=== PATIENT | male | born 1995 | race Caucasian/White ===

== ENCOUNTER 2016-09-01 23:54 | Emergency (ER) | payer OTHER ==
[2016-09-02 00:10] VITALS: BP 149/76; PULSE 64; RESP 16; TEMP 98.6
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
== END 2016-09-02 01:35 | disposition home or self-care (01) ==
LOC: EC 23:54
DX: Z77.098 Contact with and (suspected) exposure to other hazardous, chiefly nonmedicinal, chemicals (principal); F17.200 Nicotine dependence, unspecified, uncomplicated
CPT/HCPCS: 99282

== ENCOUNTER 2018-05-08 16:46 | Inpatient (IN) | payer BC, OTHER ==
[2018-05-08] MEDS ORDERED: HYDROmorphone 1 MG/ML 1 ML SYRINGE IVP STA ×2 (17:09→19:49)
[2018-05-08] MEDS ORDERED: DIPH,PERTUS(ACELL)TETVAC-LF 0.5 ML VIAL IM ONE (17:09)
[2018-05-08] MEDS ORDERED: PIPERACILLIN-TAZOBACTAM 3.375 GM in SODIUM CHLORIDE 0.9% 100 ML IVPB STA (17:11)
[2018-05-08] MEDS ORDERED: ONDANSETRON 4 MG/2 ML VIAL IVP STA (17:12)
--- NOTE | 2018-05-08 17:25 | ED ---
Lower Extremity Injury HPI - General Chief Complaint: Skin/Abscess/Foreign Body Stated Complaint: Right Foot Injury Time Seen by Provider: 05/08/18 16:57 Source: patient Mode of arrival: EMS Limitations: no limitations - History of Present Illness Initial Comments: 22-year-old male patient presents to the emergency department today for evaluation of injury to the right foot. Patient states approximately 30 minutes prior to arrival he was riding down a tree when the tree fell down and a sharp pointy portion of the treee impaled through his shoe into his foot. He states that his family member pulled the tree out shortly after the injury. They called ambulance and had him transported here. Patient states he is having significant pain to the right foot. States he is feeling some numbness to the fifth digit. Last tetanus vaccine was in 2012. He denies any other injuries. Patient denies any headache, neck pain, back pain, chest pain, shortness of breath, dizziness, weakness, abdominal pain, nausea, vomiting, or difficulties with bowel movements or urination. - Related Data Home Medications Medication Instructions Recorded Confirmed Melatonin 10 mg PO HS 05/08/18 05/08/18 Sertraline [Zoloft] 100 mg PO HS 05/08/18 05/08/18 Allergies Allergy/AdvReac Type Severity Reaction Status Date / Time No Known Allergies Allergy Verified 05/08/18 20:15 Review of Systems ROS Statement: Those systems with pertinent positive or pertinent negative responses have been documented in the HPI. ROS Other: All systems not noted in ROS Statement are negative. Past Medical History Past Medical History: Syncope Additional Past Medical History / Comment(s): not dx, high BP, recurrent low BP, History of Any Multi-Drug Resistant Organisms: None Reported Past Surgical History: No Surgical Hx Reported Past Psychological History: No Psychological Hx Reported Smoking Status: Current every day smoker Past Alcohol Use History: Occasional Past Drug Use History: None Reported General Exam Limitations: no limitations General appearance: alert, in no apparent distress, other (This is a well- developed, well-nourished adult male patient in mild distress related to pain. Vital signs upon presentation are temperature 98.7 degrees a NyQuil pulse 89, respirations 18, blood pressure 133/74, pulse ox 98% on room air.) Eye exam: Present: normal appearance, PERRL, EOMI. Absent: scleral icterus, conjunctival injection, periorbital swelling ENT exam: Present: normal exam, normal oropharynx, mucous membranes moist Respiratory exam: Present: normal lung sounds bilaterally. Absent: respiratory distress, wheezes, rales, rhonchi, stridor Cardiovascular Exam: Present: regular rate, normal rhythm, normal heart sounds. Absent: systolic murmur, diastolic murmur, rubs, gallop, clicks Extremities exam: Present: full ROM, normal capillary refill, other (Patient has a large irregular laceration noted to the right lateral foot extending from the dorsal surface to the plantar surface. Total length is approximately 23 cm. Toes are cool to touch. Cap refill less than 3 seconds. Pedal and posttibial pulses 2+ and equal bilaterally. Bleeding is under control.). Absent: normal inspection, tenderness, pedal edema, joint swelling, calf tenderness Neurological exam: Present: alert, oriented X3, CN II-XII intact Psychiatric exam: Present: normal affect, normal mood Skin exam: Present: warm, dry, intact, normal color. Absent: rash Course Vital Signs 05/08/18 17:01 Temperature 98.7 F Pulse Rate 89 Respiratory 18 Rate Blood Pressure 133/74 O2 Sat by Pulse 98 Oximetry Medical Decision Making - Medical Decision Making 22-year-old male patient presented to the emergency department today for evaluation of right foot injury after a tree fell onto his foot with a sharp pointy portion and paling the right lateral foot. X-ray was obtained and showed no acute osseous abnormalities did show soft tissue deformity consistent with multiple lacerations. There was a total of approximately 23 cm laceration to the right dorsal foot and to the plantar surface of the foot. This was cleansed using a mixture of sterile water and iodine. Nonadherent and a wet-to- dry dressing was applied. My attending did discuss the case with the on-call orthopedic surgeon who will admit patient and taken to operating room tomorrow for washout and closure. We did start Zosyn. Patient will have pain management provided. I did discuss findings, results, and plan with patient and family, they are agreeable. - Radiology Data Radiology results: report reviewed, image reviewed 3 views of the right foot were obtained, report was reviewed in its entirety. Impression by Dr. Kline shows no acute fracture dislocation the right foot. Multifocal subcutaneous emphysema of the plantar lateral aspect of the midfoot and hindfoot with multifocal soft tissue lacerations. Disposition Clinical Impression: Laceration of foot, right, complicated Disposition: ADMITTED IP TO THIS [facility] Condition: Serious Decision to Admit Reason: Admit from EC Decision Date: 05/08/18 Decision Time: 19:30
--- NOTE | 2018-05-08 17:41 | XR ---
EXAMINATION TYPE: XR foot complete RT DATE OF EXAM: 05/08/2018 CLINICAL HISTORY: Right foot pain after injury. TECHNIQUE: Frontal, lateral, and oblique images of the right foot are obtained. COMPARISON: None FINDINGS: There is no acute fracture/dislocation evident in the right foot. There is lateral midfoot and hindfoot subcutaneous emphysema and soft tissue swelling with multifocal lacerations. This is se en over the plantar surface of the hindfoot and forefoot. IMPRESSION: There is no acute fracture or dislocation in the right foot. Multifocal subcutaneous emp hysema of the plantar lateral aspect of the midfoot and hindfoot with multifocal soft tissue lacerati ons.
[2018-05-08] MEDS ORDERED: HYDROmorphone 0.5 MG/0.5 ML SYRINGE IVP STA ×2 (17:53→19:06)
[2018-05-08] MEDS ORDERED: KETOROLAC 30 MG/ML 1 ML VIAL IVP STA (18:48)
[2018-05-08] MEDS ORDERED: NALOXONE 0.4 MG/ML 1 ML VIAL IV PRN (19:30)
[2018-05-08] MEDS ORDERED: ONDANSETRON 4 MG/2 ML VIAL IVP PRN (19:30)
[2018-05-08] MEDS ORDERED: LORazepam 2 MG/ML INJ IV STA (19:49)
[2018-05-08] MEDS: MELATONIN 5 MG TABLET PO SCH (23:04)
[2018-05-08] MEDS: SERTRALINE 100 MG TAB PO SCH (23:04)
[2018-05-08] MEDS: SODIUM CHLORIDE 0.9% 1,000 ML IV SCH (23:04)
[2018-05-08] MEDS: HYDROmorphone 0.5 MG/0.5 ML SYRINGE IVP PRN (23:26)
[2018-05-09] MEDS ORDERED: PIPERACILLIN-TAZOBACTAM 3.375 GM in SODIUM CHLORIDE 0.9% 100 ML IVPB ONE (02:00)
[2018-05-09] MEDS: HYDROmorphone 0.5 MG/0.5 ML SYRINGE IVP PRN ×4 (02:32→13:21)
--- NOTE | 2018-05-09 08:29 | P.HPOR ---
History of Present Illness H&P Date: 05/09/18 Chief Complaint: Right foot laceration This is a 22-year-old male who presented to the emergency department yesterday with injury to his right foot. He was in the [place] by his house taking down a tall, broken tree when a sharp, jagged part of the tree impaled his work boot on the lateral aspect of his foot. He sustained a large laceration with wound contamination. The wound was irrigated in the emergency department yesterday. He is admitted for IV antibiotics and surgical debridement. Past Medical History Past Medical History: Syncope Additional Past Medical History / Comment(s): not dx, high BP, recurrent low BP, History of Any Multi-Drug Resistant Organisms: None Reported Past Surgical History: No Surgical Hx Reported Additional Past Surgical History / Comment(s): Loop recorder placed about a year ago Past Psychological History: No Psychological Hx Reported Smoking Status: Current every day smoker Past Alcohol Use History: Occasional Past Drug Use History: None Reported Medications and Allergies Home Medications Medication Instructions Recorded Confirmed Type Melatonin 10 mg PO HS 05/08/18 05/08/18 History Sertraline [Zoloft] 100 mg PO HS 05/08/18 05/08/18 History Allergies Allergy/AdvReac Type Severity Reaction Status Date / Time No Known Allergies Allergy Verified 05/08/18 20:15 Physical Examination This is a pleasant 22-year-old male in no acute distress. He is alert and oriented 3. Exam of the right lower extremity reveals a large L-shaped laceration about the lateral aspect of the foot, about the region of the base of the fifth metatarsal, extending into the midfoot dorsally. Tendon and muscle are visible. He has fairly good toe motion. He has dulled sensation to the lateral 2 toes. He has fairly good ankle motion without difficulty. Capillary refill is less than 3 seconds. Neurovascular status to the lower extremity is otherwise intact. Results X-rays of the right foot show no obvious bony abnormality. Soft tissue disruption noted on x-ray. Assessment and Plan (1) Laceration of foot, right, complicated Current Visit: Yes Status: Acute Code(s): S91.311A - LACERATION WITHOUT FOREIGN BODY, RIGHT FOOT, INIT ENCNTR SNOMED Code(s): 770235296 Plan: The clinical and x-ray findings are discussed the patient and his family. It is recommended he go to the operating room for surgical debridement and exploration of the wound with repair of the laceration. The procedure has been discussed in detail including the possible risks and outcomes of surgery. After discussion and consideration the patient elects to proceed with the surgery.
[2018-05-09] MEDS ORDERED: KETOROLAC 30 MG/ML 1 ML VIAL ONE (10:27)
[2018-05-09] MEDS ORDERED: LIDOCAINE 1% INJ 10MG/ML (20 ML MDV) ONE (10:27)
[2018-05-09] MEDS ORDERED: ONDANSETRON 4 MG/2 ML VIAL ONE (10:27)
[2018-05-09] MEDS ORDERED: fentaNYL (PF) 50 MCG/ML 2 ML AMP ONE (10:27)
[2018-05-09] MEDS ORDERED: SUCCINYLCHOLINE CHLORIDE VIAL 200 MG/10 ML VIAL IV ONE (10:27)
[2018-05-09] MEDS ORDERED: SODIUM CHLORIDE 0.9% 1,000 ML IV ONE (10:27)
[2018-05-09] MEDS ORDERED: PROPOFOL 10 MG/ML 20 ML VIAL IV ONE (10:27)
[2018-05-09] MEDS ORDERED: MIDAZOLAM 2 MG/2 ML VIAL ONE (10:27)
[2018-05-09] MEDS ORDERED: SODIUM CHLORIDE 0.9% 50 ML with ceFAZolin 3,000 MG IV ONE ×2 (10:45)
[2018-05-09] MEDS ORDERED: diphenhydrAMINE 25 MG CAP PO PRN (11:02)
[2018-05-09] MEDS ORDERED: HYDROmorphone 1 MG/ML 1 ML SYRINGE IVP PRN (11:02)
[2018-05-09] MEDS ORDERED: hydrOXYzine PAMOATE 25 MG CAP PO PRN (11:02)
[2018-05-09] MEDS ORDERED: SENNOSIDES-DOCUSATE SODIUM 1 EACH TAB PO PRN (11:02)
[2018-05-09] MEDS ORDERED: TEMAZEPAM 15 MG CAP PO PRN (11:02)
[2018-05-09] MEDS ORDERED: HYDROmorphone 0.5 MG/0.5 ML SYRINGE IVP PRN (11:02)
[2018-05-09] MEDS ORDERED: LACTATED RINGERS 1,000 ML IV ONE (11:08)
[2018-05-09] MEDS: LACTATED RINGERS 1,000 ML IV SCH ×2 (12:36→21:51)
[2018-05-09 14:44] LABS: Anion Gap 6 mmol/L; Blood Urea Nitrogen 24 mg/dL (9-20); Calcium 8.6 mg/dL (8.4-10.2); Carbon Dioxide 26 mmol/L (22-30); Chloride 110 mmol/L (98-107); Glucose 119 mg/dL (74-99); Potassium 4.5 mmol/L (3.5-5.1); Sodium 142 mmol/L (137-145)
[2018-05-09] MEDS ORDERED: GENTAMICIN PER PHARMACY MISCELLANE PRN (15:57)
[2018-05-09] MEDS: SODIUM CHLORIDE 0.9% 1,000 ML IV SCH (15:58)
[2018-05-09] MEDS ORDERED: GENTAMICIN 80 MG in SODIUM CHLORIDE 0.9% 100 ML IVPB SCH (16:00)
[2018-05-09] MEDS: ceFAZolin 3 GM in SODIUM CHLORIDE 0.9% 100 ML IVPB SCH ×2 (16:38→23:37)
[2018-05-09] MEDS ORDERED: GENTAMICIN 500 MG in SODIUM CHLORIDE 0.9% 100 ML IVPB SCH (17:00)
[2018-05-09] MEDS: HYDROcodone/APAP 5-325MG 1 EACH TAB PO PRN ×2 (19:16→21:50)
--- NOTE | 2018-05-09 20:42 | CONS ---
CONSULTATION DATE OF CONSULTATION: 05/09/2018 REASON FOR CONSULTATION: Medical management requested by Dr. Armas. CONSULTATION: HISTORY OF PRESENTING COMPLAINT: This is a 22-year-old patient whose family doctor is Dr. Alas. The patient near his house, there was a long branch which appeared to be over 20 feet hanging from the tree. One end was caught up on the tree and the part that actually had broken off was hanging on the lower end. Patient started to pull it down and so that it fell. It fell in such a way that the sharp end, which was hanging below, came straight down hitting the lateral part of his boot, went through his boot and his foot and jammed in the ground. The patient's father in law came out and had to pull off the tree from the ground. There was a laceration in the lateral part of the right foot. The patient's father in law has got pictures in his phone for the same, which he took in the ER and also while the patient was on the ground. The patient earlier was taken to the OR today. I do not have the official operative notes. All dressings in place when I saw the patient this afternoon. The patient did receive a tetanus shot in the ER and also received IV antibiotic. The patient was having episodes of passing out about a year ago and has got a loop recorder in place for close to a year. No on toward events have been reported otherwise. The patient does smoke a few cigarettes a day. Otherwise is in good health. Has some pain at the surgical site. REVIEW OF SYSTEMS: CONSTITUTIONAL: None. HEENT: None. RESPIRATORY: None. CARDIOVASCULAR: None. GASTROINTESTINAL: None. GENITOURINARY none. MUSCULOSKELETAL: As above. DERMATOLOGICAL as above. LYMPHATICS none. PSYCHIATRY none. NEUROLOGICAL none. PAST MEDICAL HISTORY: Episodes of passing out, loop recorder in place. PAST SURGICAL HISTORY: Loop recorder. SOCIAL HISTORY: Smokes about 6 cigarettes a day. Alcohol occasionally. Lives with his girlfriend's family and is employed. FAMILY HISTORY: Reviewed. Noncontributory to presentation. HOME MEDICATIONS: 1. Zoloft 100 mg q.h.s. 2. Melatonin 10 mg q.h.s. ALLERGIES: None. PHYSICAL EXAMINATION: VITAL SIGNS: Temperature 98, pulse 81, respiratory 14, blood pressure 137/65, pulse 95 percent on 3 L. GENERAL APPEARANCE: Well built, BMI 30.3, lying in bed. Tired-appearing. EYES: Pupils equal. Conjunctivae normal. HEENT: External appearance of nose and ears normal. Oral cavity normal. NECK: JVD not raised. Mass not palpable. RESPIRATORY: Effort normal. LUNGS: Fair air entry. CARDIOVASCULAR: 1st and 2nd sounds normal. No edema. ABDOMEN: Soft, nontender. Liver and spleen not palpable. LYMPHATICS: No lymph nodes palpable in the neck and axilla. PSYCHIATRY: Tired, but answering questions appropriately. MUSCULOSKELETAL: Dressing over the right foot. INVESTIGATIONS: White count 4.5, hemoglobin 24, creatinine 0.92. ASSESSMENT: 1. Right foot injury with laceration and penetrating wound with hat from a tree branch. The patient did get a tetanus injection in the ER and also did receive antibiotics in the form of IV Ancef and gentamicin. The patient was taken to the OR by Dr. Armas. Now with a dressing in place. 2. Chronic nicotine dependence, patient is a cigarette smoker. 3. Obesity BMI 30.3. 4. Patient has received a tetanus shot. Next, loop recorder in place for prior episodes of syncope. PLAN: Continue with antibiotics. The patient is on IV Ancef. Pain control is in place. We will add Lovenox for DVT prophylaxis. We will also given nicotine patch. Pain control per the surgical team. Care was discussed with the patient and family at the bedside. Thank you, Dr. Armas. MMDEWEY / SOLE: [id number] /
[2018-05-09] MEDS: NICOTINE 7MG/24HR PATCH TRANSDERM SCH (21:47)
[2018-05-09] MEDS: ENOXAPARIN 40 MG/0.4 ML SYRINGE SQ SCH (21:50)
[2018-05-09] MEDS: MELATONIN 5 MG TABLET PO SCH (21:50)
[2018-05-09] MEDS: SERTRALINE 100 MG TAB PO SCH (21:50)
[2018-05-10] MEDS: HYDROcodone/APAP 5-325MG 1 EACH TAB PO PRN ×4 (00:44→18:22)
[2018-05-10] MEDS: LACTATED RINGERS 1,000 ML IV SCH ×4 (04:53→21:22)
--- NOTE | 2018-05-10 05:42 | CONS ---
CONSULTATION DATE OF SERVICE: 05/09/2018. REASON FOR CONSULTATION: Right foot infected contaminated wound. HISTORY OF PRESENT ILLNESS: The patient is a 22 -year-old male who recently suffered injury to his right foot. About 30 minutes prior to arrival to the ER, the patient was tree when the tree fell down with sharp point portion of the tree through his shoe into his foot. The patient did have extensive laceration of his right foot with significant contamination. The patient did have a of his foot in the ER and subsequently patient was admitted hospital. The patient had been taken to the OR by Orthopedics and is status post operative repair with official operative report currently pending. The patient has been started on cefazolin and gentamicin. Infectious Disease was consulted for further recommendation of antibiotic therapy. The patient, at this time, is afebrile. He is breathing comfortably. Denies any chest pain, shortness of breath or cough. The patient pain to the right foot which was almost 10/10 when he presented to the hospital is currently controlled with pain medication he has been receiving. The patient denies having any chest pain, shortness of breath or cough. No abdominal pain or any diarrhea. REVIEW OF SYSTEMS: Positive points have been mentioned in HPI. Rest of the systems has been negative. PAST MEDICAL HISTORY: Syncope. PAST SURGICAL HISTORY: No major surgeries. SOCIAL HISTORY: Patient current everyday smoker. Occasionally drinks. No drug use. FAMILY HISTORY: No pertinent findings noticed. ALLERGIES: No known drug allergies. MEDICATION: Medications include the patient is currently on Sunbright, cefazolin 3 g q.8 hours, he is on Benadryl, Lovenox, gentamicin, Dilaudid and Restoril, melatonin, Narcan, Zofran, Senokot, Zoloft, Restoril. PHYSICAL EXAMINATION: Blood pressure is 131/64 with a pulse of 81, temperature 97.1. He is 97% on room air. General description is a young male lying in bed in no distress. No tachypnea or accessory muscles of respiration use. HEENT: No pallor or scleral icterus. Oral mucosal membranes are dry. No pharyngeal erythema or thrush. Trachea central. No thyromegaly. Lungs unlabored breathing. Clear to auscultation anteriorly. No wheeze or crackles. Heart S1, S2. Regular rate and rhythm. ABDOMEN: Soft, no tenderness. No guarding or rigidity. Extremities: Right foot is currently dressed up. No obvious drainage on the dressing. LABS: BUN of 24, creatinine 0.92. Unfortunately, no cultures were done at the time of surgery. DIAGNOSTIC IMPRESSION AND PLAN: Patient with right foot wound contamination in this patient who did have an injury with a tree cutting through his foot, status post open repair of his wound and washout. The likely organism to cover with gram-positive skin gabi and less likely gram-negative infection as this patient had not been on any antibiotic in the recent past. PLAN: 1. Cefazolin 3 g q.8 hours should be continued. 2. If the patient spikes any fever, blood culture will be obtained. 3. Depending upon his clinical response as well as condition of his wound, will be adjusting antibiotic further if needed. Thank you for this consultation. Will follow this patient along with you. MMODL / IJN: [id number] /
[2018-05-10] MEDS: ENOXAPARIN 40 MG/0.4 ML SYRINGE SQ SCH (08:23)
[2018-05-10] MEDS: NICOTINE 7MG/24HR PATCH TRANSDERM SCH (08:24)
[2018-05-10] MEDS: HYDROmorphone 0.5 MG/0.5 ML SYRINGE IVP PRN ×2 (08:27→15:36)
[2018-05-10 09:28] LABS: Basophils % (A) 0 %; Eosinophils # (A) 0.1 k/uL (0-0.7); Eosinophils % (A) 1 %; HCT 38.1 % (39.0-53.0); HGB 12.7 gm/dL (13.0-17.5); Lymphocytes # (A) 1.1 k/uL (1.0-4.8); Lymphocytes % (A) 14 %; MCH 27.7 pg (25.0-35.0); MCHC 33.2 g/dL (31.0-37.0); MCV 83.3 fL (80.0-100.0); Mean Platelet Volume 8.2; Monocytes # (A) 0.6 k/uL (0-1.0); Monocytes % (A) 8 %; Neutrophils # (A) 5.7 k/uL (1.3-7.7); Neutrophils % (A) 75 %; Platelet Count 132 k/uL (150-450); RBC 4.58 m/uL (4.30-5.90); RDW 14.1 % (11.5-15.5); WBC 7.6 k/uL (3.8-10.6)
--- NOTE | 2018-05-10 10:16 | P.OP ---
Date of Procedure: 05/09/18 Procedure(s) Performed: PREOPERATIVE DIAGNOSES: 1. Right foot/ankle wounds irrigation and debridement POSTOPERATIVE DIAGNOSES: 1. Right foot/ankle wounds irrigation and debridement with iodoform packing PROCEDURES PERFORMED: 1. Right foot wound exploration with irrigation and debridement and packing of open wounds x 2 (sharp debridement using knife of skin, subcutaneous tissue, fascia) 2. Removal of foreign body/debridement 5 (fragments measuring approximately 8 mm or more in size) ANESTHESIA: Spinal PLUMBING ASSEMBLER: None COMPLICATIONS: None ESTIMATED BLOOD LOSS: Less than 25 mL. DISPOSITION: To post-anesthesia care unit INDICATIONS: Neo is a 22-year-old male who sustained an injury to the right foot. The injury consists of penetrating through and through injury over the dorsal lateral aspect of the foot with a large contaminated wound which was preliminarily irrigated in the emergency room last night. He evidently was removing a broken tree when he pulled on it and the sharp end of the tree went through his boot and through his foot. I recommended exploration and debridement of the open wound and possible removal of further foreign debris and proper wound treatment. I have discussed the steps of the operation as well as potential risks and complications as being inclusive of, but not limited to: Bleeding, infection, scarring, discomfort, blood vessel and/or nerve damage, tendon injury, wound complications possibly requiring skin graft or flap, reflex sympathetic dystrophy, persistent pain, limp, anesthesia risks, , and other risks. Of note, preoperatively, the patient has numbness over the lateral aspect of the foot into the lateral 2 toes since the injury. The patient wishes to proceed with surgery and has signed a consent form. PROCEDURE: After appropriate consent was obtained, the patient was taken to the operating room placed in the supine position. Anesthesia was initiated, and after confirmation of adequate anesthesia, the patient was carefully positioned. Care was taken to make sure that all pressure points were adequately padded. Prepping and draping were completed in the usual aseptic fashion using chlorhexidine prep. Timeout was called, confirming patient identity, side, procedure, and administration of antibiotics. The wound was explored first. The entry wound was somewhat curved and measured approximately 8 cm in size on the dorsal lateral aspect of the foot. Moderate undermining of the skin was noted from the injury proximally with the skin having a somewhat darkened appearance but it did at that point appear viable. A small 1 cm laceration more proximally on the lateral side of the foot was encountered and thoroughly irrigated. Several pieces of wood were found in the main wound, approximately 5 pieces of at least 8 mm size. These were all removed. Smaller debris was seen throughout the wound and this was carefully removed using a hemostat, pulse lavage and Adson pickups. There was small amount of subcutaneous tissue and fascia which was determined to be nonviable due to the extent of the injury and therefore was sharply removed using dissecting scissors and or #15 blade. There did not appear to be any definite tendon or bony injury. The laceration skived lateral to the fifth metatarsal and out through the plantar aspect of the foot. The skin bridge between the dorsal and plantar wounds was located distal, approximately at the level of the distal fifth metatarsal, and was only approximately 1 cm in width. The plantar wound was inspected and found to communicate directly with the dorsal wound. Debris in this region was removed using pulsatile saline and careful meticulous removal of foreign debris using surgical sponge and Adson pickups.. Thorough copious irrigation using pulsatile saline was performed. Wound had a significantly improved appearance once the debridement had been completed. Hemostasis was obtained where necessary using electrocautery. Consideration of placement of a wound VAC was contemplated. However, the wound was situated in a way to make sealing the wound problematic and I felt that without a good seal, the negative pressure dressing would be significantly compromised in terms of effectiveness. Therefore, a dressing consisting of iodoform was packed into the wound gently on both surfaces (plantar and dorsal, separately) and dry dressing was then applied to the surface, secured with Kerlix and Froilan wrap. Patient tolerated the procedure well and taken to recovery room in stable condition. Sponge and needle counts were correct.
[2018-05-10] MEDS ORDERED: GENTAMICIN 700 MG in SODIUM CHLORIDE 0.9% 100 ML IVPB SCH (13:00)
--- NOTE | 2018-05-10 13:24 | P.PN ---
Subjective Progress Note Date: 05/10/18 Principal diagnosis: Laceration right foot. Status post I&D right foot. This is a 22-year-old male who is status post irrigation and debridement of a large laceration to the lateral and plantar aspect of the right foot. He is doing well from an orthopedic standpoint. His dressing was changed earlier this morning due to sanguinous saturation. He has no new complaints or concerns today. Vital signs are stable. Objective - Vital Signs Vital signs: Vital Signs Temp 98.7 F 05/10/18 08:14 Pulse 87 05/10/18 08:14 Resp 16 05/10/18 08:14 BP 132/65 05/10/18 08:14 Pulse Ox 98 05/10/18 08:14 Intake & Output 05/09/18 05/10/18 05/10/18 18:59 06:59 18:59 Intake Total 900 Output Total 25 1000 Balance 875 -1000 Intake: IV 900 Output: Urine 1000 Estimated Blood Loss 25 Other: Voiding Method Urinal Urinal # Voids 3 0 # Bowel Movements 0 - Exam This is a 22-year-old male in no acute distress. He is alert and oriented 3. Exam of the right lower extremity reveals that his dressing is clean, dry and intact. He has full ankle motion without difficulty or pain. He has full toe motion. He continues to have slight numbness to the lateral toes. Neurovascular status to the lower extremity is otherwise intact. - Labs CBC & Chem 7: 05/10/18 08:58 05/09/18 14:14 Labs: Abnormal Lab Results - Last 24 Hours (Table) 05/09/18 05/10/18 Range/Units 14:14 08:58 Hgb 12.7 L (13.0-17.5) gm/dL Hct 38.1 L (39.0-53.0) % Plt Count 132 L (150-450) k/uL Chloride 110 H (98-107) mmol/L BUN 24 H (9-20) mg/dL Glucose 119 H (74-99) mg/dL Assessment and Plan (1) Laceration of foot, right, complicated Current Visit: Yes Status: Acute Code(s): S91.311A - LACERATION WITHOUT FOREIGN BODY, RIGHT FOOT, INIT ENCNTR SNOMED Code(s): 301891577 Plan: The clinical and x-ray findings are discussed the patient and his family. The patient was evaluated by Dr. Armas as well. We're planning repeat I&D of the right foot and possible delayed primary closure tomorrow in the OR.
--- NOTE | 2018-05-10 17:01 | PN ---
PROGRESS NOTE DATE OF SERVICE: 05/10/2018 PRESENTING COMPLAINT: Right foot injury. INTERVAL HISTORY: This is a patient with a tree branch injury to his right foot. There was some drainage from the wound. Patient is status post initial I&D. They are planning for a delayed closure. Pain is present. Otherwise, patient is tolerating a diet. No fever. No chills. REVIEW OF SYSTEMS: Done for constitutional, cardiovascular, GI, pulmonary; relevant findings as above. CURRENT MEDICATIONS: Reviewed. They include IV gentamicin and IV fluids. PHYSICAL EXAMINATION: VITAL SIGNS: Temperature 98.7, pulse 87, respiration 16, blood pressure 132/65, pulse ox 98% on room air. GENERAL APPEARANCE: Sitting up, comfortable. EYES: Pupils equal. Conjunctivae normal. NECK: JVD not raised. Mass not palpable. RESPIRATORY: Effort normal. Lungs are clear. CARDIOVASCULAR: First and second sounds normal. No edema. ABDOMEN: Soft, non-tender. Liver and spleen not palpable. PSYCHIATRY: Alert and oriented x3. Mood and affect normal. MUSCULOSKELETAL: Right foot in a dressing. Has a fair movement of all the toes. No evidence of ischemia. INVESTIGATIONS: White count 7.6, hemoglobin 12.7. ASSESSMENT: 1. Right foot injury with laceration and penetrating wound from a tree branch. Did get tetanus injection in the ER. Did have washout of the wound yesterday. Orthopedics is planning for a delayed closure, possibly going back to the OR in the next 24 hours. 2. Chronic nicotine dependence. Patient is a cigarette smoker. 3. Obesity; body mass index of 30.3. 4. Loop recorder in place. PLAN: Care was discussed with the patient, his girlfriend and patient's stepfather. Questions were answered. Antibiotics per Dr. Hartley. Thank you, Dr. Armas. MMODL / IJN: [id number] /
[2018-05-10] MEDS ORDERED: LIDOCAINE 1% 20 ML VIAL (10MG/ML) FOR IV START INTRADERMA PRN (20:08)
[2018-05-10] MEDS: MELATONIN 5 MG TABLET PO SCH (21:23)
[2018-05-10] MEDS: SERTRALINE 100 MG TAB PO SCH (21:23)
[2018-05-11] MEDS: AMPICILLIN-SULBACTAM 3 GM in SODIUM CHLORIDE 0.9% 100 ML IVPB SCH ×5 (00:21→23:26)
[2018-05-11] MEDS: HYDROmorphone 0.5 MG/0.5 ML SYRINGE IVP PRN ×2 (02:43→07:56)
--- NOTE | 2018-05-11 06:51 | PN ---
PROGRESS NOTE DATE OF SERVICE: 05/10/2018. REASON FOR FOLLOWUP: wound to his right foot with extensive injury. INTERVAL HISTORY: The patient is currently afebrile, has been breathing comfortably. Pain to the right foot is currently controlled with pain medication. The patient denies having any chest pain, shortness of breath or cough. No abdominal pain. No diarrhea. PHYSICAL EXAMINATION: On examination, blood pressure 120/67 with a pulse of 70, temperature is 97.7. He is 99% on room air. General description is a young male, lying in bed in no distress. RESPIRATORY SYSTEM: Unlabored breathing, clear to auscultation anteriorly. HEART: S1, S2. Regular rate and rhythm. ABDOMEN: Soft, no tenderness. Right foot is currently dressed up, no obvious drainage on the dressing. LABS: His white count is normal. No cultures. DIAGNOSTIC IMPRESSION AND PLAN: Patient with extensive wound to the right foot, traumatic, status post open repair and washout. The patient's antibiotic will be transitioned to Unasyn 3 gram q.6. Discontinue gentamicin. Continue local wound care and continue supportive care. MMODL / IJN: [id number] /
[2018-05-11] MEDS: ENOXAPARIN 40 MG/0.4 ML SYRINGE SQ SCH (07:01)
[2018-05-11] MEDS: NICOTINE 7MG/24HR PATCH TRANSDERM SCH (07:54)
[2018-05-11] MEDS ORDERED: fentaNYL (PF) 50 MCG/ML 2 ML AMP IV PRN (10:00)
[2018-05-11] MEDS ORDERED: DEXAMETHASONE SOD PHOSPHATE 10 MG/ML 1 ML VIAL IV ONE (10:00)
[2018-05-11] MEDS ORDERED: MIDAZOLAM (PF) 2 MG/2 ML VIAL IV PRN (10:00)
[2018-05-11 10:18] LABS: Anion Gap 9 mmol/L; Blood Urea Nitrogen 11 mg/dL (9-20); Carbon Dioxide 25 mmol/L (22-30); Chloride 107 mmol/L (98-107); Glucose 93 mg/dL (74-99); Sodium 141 mmol/L (137-145)
[2018-05-11] MEDS ORDERED: IV FLUID CONTINUATION 700 ML IV ONE (11:30)
[2018-05-11] MEDS ORDERED: LIDOCAINE 1% INJ 10MG/ML (20 ML MDV) ONE (12:11)
[2018-05-11] MEDS ORDERED: HYDROmorphone (PF) 1 MG/ML ONE (12:11)
[2018-05-11] MEDS ORDERED: MIDAZOLAM 2 MG/2 ML VIAL ONE (12:11)
[2018-05-11] MEDS ORDERED: fentaNYL (PF) 50 MCG/ML 2 ML AMP ONE (12:11)
[2018-05-11] MEDS ORDERED: SUCCINYLCHOLINE CHLORIDE VIAL 200 MG/10 ML VIAL IV ONE (12:11)
[2018-05-11] MEDS ORDERED: PROPOFOL 10 MG/ML 20 ML VIAL IV ONE (12:11)
[2018-05-11] MEDS ORDERED: BACITRACIN 500 UNIT/GM OINT 28.4 GM TUBE TOPICAL ONE (13:00)
[2018-05-11] MEDS ORDERED: LACTATED RINGERS 1,000 ML IV ONE (13:08)
[2018-05-11] MEDS ORDERED: HYDROmorphone 1 MG/ML 1 ML SYRINGE IVP ONE (13:46)
[2018-05-11] MEDS: LACTATED RINGERS 1,000 ML IV SCH ×3 (14:19→20:43)
--- NOTE | 2018-05-11 16:09 | P.PN ---
Subjective 22-year-old admitted for abscess of the right foot secondary to trauma from wood , 3 branch. Patient underwent I&D and the had a small the wound VAC right foot is postsurgically The patient was started on Toradol for pain to avoid Dilaudid. Constitutional: Denied any fatigue denied any fever. Cardio vascular: denied any chest pain, palpitations Gastrointestinal denied any nausea vomiting Pulmonary: Denied any shortness of breath cough Neurologic denied any new focal deficits All inpatient medications were reviewed and appropriate changes in these medications as dictated in the interval history and assessment and plan. Objective - Vital Signs Vital signs: Vital Signs Temp 97.9 F 05/11/18 14:20 Pulse 81 05/11/18 15:05 Resp 16 05/11/18 14:20 BP 145/81 05/11/18 15:05 Pulse Ox 94 L 05/11/18 15:05 Intake & Output 05/10/18 05/11/18 05/11/18 18:59 06:59 18:59 Intake Total 0 900 Output Total 2 Balance 0 898 Intake: IV 900 Oral 0 Output: Estimated Blood Loss 2 Other: Voiding Method Urinal # Voids 3 2 3 # Bowel Movements 1 0 - Exam PHYSICAL EXAMINATION: GENERAL: The patient is alert and oriented x3, not in any acute distress. Well developed, well nourished. HEENT: Pupils are round and equally reacting to light. EOMI. No scleral icterus. No conjunctival pallor. Normocephalic, atraumatic. No pharyngeal erythema. No thyromegaly. CARDIOVASCULAR: S1 and S2 present. No murmurs, rubs, or gallops. PULMONARY: Chest is clear to auscultation, no wheezing or crackles. ABDOMEN: Soft, nontender, nondistended, normoactive bowel sounds. No palpable organomegaly. MUSCULOSKELETAL: No joint swelling or deformity. Right foot is wrapped postsurgically EXTREMITIES: No cyanosis, clubbing, or pedal edema. NEUROLOGICAL: Gross neurological examination did not reveal any focal deficits. SKIN: No rashes. - Labs CBC & Chem 7: 05/10/18 08:58 05/11/18 09:23 Assessment and Plan Plan: -Right foot abscess secondary to laceration from penetrating injury from a tree branch: Status post incision and drainage twice and patient is on Unasyn which will be continued so far the cultures are negative -Nicotine dependence -Obesity Plan is to continue with antibiotics clinical monitoring.
--- NOTE | 2018-05-11 16:33 | P.OP ---
Date of Procedure: 05/11/18 Procedure(s) Performed: repeat I&D, wound cultures x2, delayed primary closure over drain (single layer) right foot no assist ebl less than 5 cc dorsal lateral skin still apparently viable but darkly bruised, 5cm x 4 cm PREOPERATIVE DIAGNOSES: 1. Right foot wounds secondary to trauma, status post initial irrigation and debridement POSTOPERATIVE DIAGNOSES: 1. Right foot wounds secondary to trauma, status post initial irrigation and debridement PROCEDURES PERFORMED: 1. Right foot wound inspection with irrigation and debridement (sharp debridement using knife of skin, subcutaneous tissue, fascia)and delayed primary closure, single layer 2 wounds, 8 cm dorsal lateral and 6 cm plantar ANESTHESIA: Gen. HEADWAITRESS: None COMPLICATIONS: None ESTIMATED BLOOD LOSS: Less than 10 mL. DISPOSITION: To post-anesthesia care unit INDICATIONS: Neo is a 22-year-old male who returns to the operating room today for repeat irrigation debridement and possible delayed primary wound closure for injuries he sustained a couple days ago. He has artery undergone initial irrigation and debridement with packing of the wound using iodoform dressing and has so far done well. He returns to the operating today for the above surgical procedure. I have discussed the steps of the operation as well as potential risks and complications as being inclusive of, but not limited to: Bleeding, infection, scarring, discomfort, blood vessel and/or nerve damage, tendon injury, wound complications possibly requiring skin graft or flap, reflex sympathetic dystrophy, persistent pain, limp, anesthesia risks, , and other risks. The patient wishes to proceed with surgery and has signed a consent form. PROCEDURE: After appropriate consent was obtained, the patient was taken to the operating room placed in the supine position. Anesthesia was initiated, and after confirmation of adequate anesthesia, the patient was carefully positioned. Care was taken to make sure that all pressure points were adequately padded. Packing was removed and sutures were removed. Prepping and draping were completed in the usual aseptic fashion using iodine prep. Timeout was called, confirming patient identity, side, procedure, and administration of antibiotics. The dorsal wound was inspected first. There was a concerning area of possibly somewhat devitalized skin over the dorsal aspect of the foot just proximal to the laceration. This corresponded with the undermined skin from the injury that was initially noted on the initial debridement. This area had several areas of what appeared to be superficial skin devitalization however the undersurface of the skin and dermis appeared to be fairly healthy and there was bleeding from the deep surface of the subcutaneous tissue and therefore, this area considering that it was approximately a 4 cm x 5 cm area, was left intact and left undisturbed. The wound itself had a a few small areas of devitalized subcutaneous tissue and fascia which was operatively debrided and resected using sharp scissors and 15 blade knife, back to bleeding tissue. This was similarly performed on the plantar wound. Bone was not involved. Skin also around the edges of the traumatic laceration was debrided back to bleeding skin. Overall, however the wound looked significantly better than what I was expecting. Cultures were taken 2, one through the plantar aspect of the foot and one on the lateral aspect of the wound. The through and through wound was irrigated once again using pulsatile saline. Saline was pulsed into the undermined area of the skin as well to evacuate any pockets of trapped liquids. 3 L of saline containing antibiotic solution was utilized to thoroughly rinsed the exposed tissues. The wound was then evaluated for possible closure. The interior of the wound appeared healthy with no evidence of devitalized tissue in the interior of the wound. The wounds were then closed over a drain using a combination of vertical mattress sutures and simple sutures utilizing number 20 and 3-0 nylon sutures in an interrupted fashion. The drain was not sutured in. The wound was able to be closed with no significant tension. Sterile dressing was then applied consisting of antibiotic ointment on the dorsal skin and laceration followed by ABDs pads, fluff dressing, Kerlix, and Froilan wrap.. Patient tolerated the procedure well and taken to recovery room in stable condition. Sponge and needle counts were correct.
[2018-05-11] MEDS: HYDROcodone/APAP 5-325MG 1 EACH TAB PO PRN (17:13)
[2018-05-11] MEDS: SERTRALINE 100 MG TAB PO SCH (20:35)
[2018-05-11] MEDS: MELATONIN 5 MG TABLET PO SCH (20:35)
[2018-05-11] MEDS: KETOROLAC 30 MG/ML 1 ML VIAL IVP PRN (20:35)
[2018-05-11] MEDS: FAMOTIDINE 20 MG TAB PO SCH (20:35)
--- NOTE | 2018-05-12 05:12 | PN ---
PROGRESS NOTE DATE OF SERVICE: 05/11/2018. REASON FOR FOLLOWUP: Right foot wound, contaminated. INTERVAL HISTORY: The patient is afebrile. The patient was taken to the OR, status post closure of his wound and placement of an [place] drain. The patient tolerated the procedure. Post surgery, the patient's pain is controlled. Denies having any chest pain, shortness of breath or cough. No abdominal pain. No diarrhea. PHYSICAL EXAMINATION: On examination, blood pressure 145/81 with a pulse of 81, temperature 98. He is 94% on room air. General description is a young male lying in bed in no distress. RESPIRATORY SYSTEM: Unlabored breathing, clear to auscultation anteriorly. HEART: S1, S2. Regular rate and rhythm. ABDOMEN: Soft, no tenderness. on the dressing. DIAGNOSTIC IMPRESSION AND PLAN: Patient with right foot injury contaminated, status post initial washout. Now status post sharp debridement and closure. The patient at this time continues with Unasyn while waiting for the culture to finalize. Re-evaluate the wound tomorrow. Continue supportive care. Family present at bedside. Their questions were answered. MMODL / IJN: [id number] /
[2018-05-12] MEDS: AMPICILLIN-SULBACTAM 3 GM in SODIUM CHLORIDE 0.9% 100 ML IVPB SCH ×4 (06:18→23:21)
[2018-05-12] MEDS: HYDROcodone/APAP 5-325MG 1 EACH TAB PO PRN ×3 (08:13→20:00)
[2018-05-12] MEDS: ENOXAPARIN 40 MG/0.4 ML SYRINGE SQ SCH (08:13)
[2018-05-12] MEDS: FAMOTIDINE 20 MG TAB PO SCH ×2 (08:13→20:00)
[2018-05-12] MEDS: NICOTINE 7MG/24HR PATCH TRANSDERM SCH (08:14)
[2018-05-12 08:16] LABS: Anion Gap 5 mmol/L; Blood Urea Nitrogen 14 mg/dL (9-20); Calcium 8.9 mg/dL (8.4-10.2); Carbon Dioxide 27 mmol/L (22-30); Chloride 111 mmol/L (98-107); Glucose 105 mg/dL (74-99); Potassium 4.4 mmol/L (3.5-5.1); Sodium 143 mmol/L (137-145)
[2018-05-12] MEDS: LACTATED RINGERS 1,000 ML IV SCH ×3 (08:19→22:26)
[2018-05-12] MEDS: KETOROLAC 30 MG/ML 1 ML VIAL IVP PRN ×2 (11:30→17:39)
--- NOTE | 2018-05-12 11:33 | P.PN ---
Subjective Progress Note Date: 05/12/18 Principal diagnosis: Laceration right foot. Status post I&D right foot. This is a 22-year-old male who is status post irrigation and debridement of a large laceration to the lateral and plantar aspect of the right foot 2 with delayed primary closure yesterday. He is doing well from an orthopedic standpoint. He rates his pain 7/10 today. Vital signs are stable. Objective - Vital Signs Vital signs: Vital Signs Temp 97.0 F L 05/12/18 07:03 Pulse 52 L 05/12/18 07:03 Resp 18 05/12/18 07:03 BP 108/51 05/12/18 07:03 Pulse Ox 96 05/12/18 07:03 Intake & Output 05/11/18 05/12/18 05/12/18 18:59 06:59 18:59 Intake Total 900 100 Output Total 2 Balance 898 100 Intake: IV 900 Oral 100 Output: Estimated Blood Loss 2 Other: Voiding Method Urinal # Voids 3 2 # Bowel Movements 0 - Exam This is a 22-year-old male in no acute distress. He is alert and oriented 3. Exam of the right lower extremity reveals his dressing is saturated with serosanguineous drainage. Dressing is changed. Laceration is well approximated. There is an area of necrotic skin about the lateral ankle/foot. There is mild erythema to this area. [place] drain in place to the plantar laceration. Decreased sensation to the dorsal lateral toes. He has fairly normal sensation to the plantar aspect of the toes. Normal toe motion. Capillary refill is less than 3 seconds. - Labs CBC & Chem 7: 05/10/18 08:58 05/12/18 07:27 Labs: Abnormal Lab Results - Last 24 Hours (Table) 05/12/18 Range/Units 07:27 Chloride 111 H (98-107) mmol/L Glucose 105 H (74-99) mg/dL Microbiology - Last 24 Hours (Table) 05/11/18 13:10 Gram Stain - Preliminary Foot - Right Wound Culture - Preliminary 05/11/18 13:10 Gram Stain - Preliminary Foot - Right Wound Culture - Preliminary 05/11/18 13:10 Anaerobic Culture - Preliminary Foot - Right 05/11/18 13:10 Fungal Culture - Preliminary Foot - Right 05/11/18 13:10 Anaerobic Culture - Preliminary Foot - Right 05/11/18 13:10 Fungal Culture - Preliminary Foot - Right Assessment and Plan (1) Laceration of foot, right, complicated Current Visit: Yes Status: Acute Code(s): S91.311A - LACERATION WITHOUT FOREIGN BODY, RIGHT FOOT, INIT ENCNTR SNOMED Code(s): 912145469 Plan: The clinical and x-ray findings are discussed the patient and his family. Continue current IV antibiotics per Dr. Hartley. Dr. Key will evaluate the patient tomorrow in Dr. Armas's absence. I will leave the [place] drain in a more day.
[2018-05-12] MEDS: MELATONIN 5 MG TABLET PO SCH (20:00)
[2018-05-12] MEDS: SERTRALINE 100 MG TAB PO SCH (20:00)
--- NOTE | 2018-05-13 05:22 | PN ---
PROGRESS NOTE DATE OF SERVICE: 05/12/2018 REASON FOR FOLLOWUP: Right foot contaminated wound and infection. INTERVAL HISTORY: The patient is currently afebrile. He has been breathing comfortably. Pain to the right foot is currently controlled. Patient denies having any chest pain, shortness of breath, or cough. No abdominal pain or diarrhea. PHYSICAL EXAMINATION: On examination, blood pressure 120/65 with a pulse of 56, temperature 97.4. He is 96% on room air. General description is a young male lying in bed in no distress. RESPIRATORY SYSTEM: Unlabored breathing, clear to auscultation anteriorly. HEART: S1, S2. Regular rate and rhythm. ABDOMEN: Soft, no tenderness. Right foot with slight necrotic skin on the site. Overall the wound on the plantar aspect looks clean with minimal swelling but no redness, no drainage. LABS: BUN of 14, creatinine 0.70. Cultures are negative so far. DIAGNOSTIC IMPRESSION AND PLAN: Patient with right foot traumatic wound significantly contaminated status post washout followed by repeat debridement and closure. The patient at this time is to continue with IV Unasyn and local wound care per Orthopedics. No not apply because of pressure and the that was seen. The area should be demarcated. Continue with supportive care. MMODL / IJN: [id number] /
[2018-05-13] MEDS: AMPICILLIN-SULBACTAM 3 GM in SODIUM CHLORIDE 0.9% 100 ML IVPB SCH ×3 (05:52→18:39)
[2018-05-13] MEDS: LACTATED RINGERS 1,000 ML IV SCH ×2 (05:55→15:46)
[2018-05-13] MEDS: NICOTINE 7MG/24HR PATCH TRANSDERM SCH (07:41)
[2018-05-13] MEDS: HYDROcodone/APAP 5-325MG 1 EACH TAB PO PRN ×2 (09:11→16:39)
[2018-05-13 09:46] LABS: Anion Gap 7 mmol/L; Blood Urea Nitrogen 17 mg/dL (9-20); Calcium 9.1 mg/dL (8.4-10.2); Carbon Dioxide 29 mmol/L (22-30); Chloride 109 mmol/L (98-107); Glucose 85 mg/dL (74-99); Potassium 4.3 mmol/L (3.5-5.1); Sodium 145 mmol/L (137-145)
[2018-05-13] MEDS: FAMOTIDINE 20 MG TAB PO SCH ×2 (09:55→21:37)
[2018-05-13] MEDS: ENOXAPARIN 40 MG/0.4 ML SYRINGE SQ SCH (09:55)
[2018-05-13] MEDS: KETOROLAC 30 MG/ML 1 ML VIAL IVP PRN ×2 (13:30→19:47)
--- NOTE | 2018-05-13 13:43 | P.PN ---
Subjective Progress Note Date: 05/13/18 This is a 22-year-old male who presented to the emergency department 05/08/18 with injury to his right foot. He was in the [place] by his house taking down a tall, broken tree when a sharp, jagged part of the tree impaled his work boot on the lateral aspect of his foot. He sustained a large laceration with wound contamination. The wound was irrigated in the emergency department on 05/08/18. He is admitted for IV antibiotics and surgical debridement. Patient is status post irrigation and debridement of a large laceration to the lateral and plantar aspect of the right foot 2 with delayed primary closure on 05/12/[address] Armas. Currently, patient states he is doing well. He states he has been remaining non- weight bearing of the operative foot. He states pain is well-controlled. He denies chest pain, shortness of breath, nausea, vomiting, fevers, chills. Dr. Hartley also present for examination. He has no new complaints today. Vital signs stable. Objective - Vital Signs Vital signs: Vital Signs Temp 97.3 F L 05/13/18 06:05 Pulse 53 L 05/13/18 06:05 Resp 18 05/13/18 06:05 BP 125/54 05/13/18 06:05 Pulse Ox 97 05/13/18 06:05 Intake & Output 05/12/18 05/13/18 05/13/18 18:59 06:59 18:59 Intake Total 480 750 Balance 480 750 Intake: Oral 480 750 Other: Voiding Method Urinal Urinal # Voids 2 1 - Exam Patient is sitting up in bed in no acute distress. He is alert and oriented 3. Exam of the right lower extremity reveals his dressing has minimal amount of serosanguineous drainage. Dressing is changed. Laceration is well approximated. There is an area of necrotic skin about the lateral ankle/foot. There is mild erythema to this area. [place] drain in place to the plantar laceration, drain is removed. Decreased sensation to the dorsal lateral toes. He has fairly normal sensation to the plantar aspect of the toes. Patient has no trouble moving toes. Dorsalis pedis pulse palpable. Capillary refill is less than 3 seconds, foot is warm and well-perfused. - Labs CBC & Chem 7: 05/10/18 08:58 05/13/18 08:41 Labs: Abnormal Lab Results - Last 24 Hours (Table) 05/13/18 Range/Units 08:41 Chloride 109 H (98-107) mmol/L Microbiology - Last 24 Hours (Table) 05/11/18 13:10 Gram Stain - Preliminary Foot - Right Wound Culture - Preliminary 05/11/18 13:10 Gram Stain - Preliminary Foot - Right Wound Culture - Preliminary Assessment and Plan Assessment: Laceration of right foot, status-post incision and drainage Plan: - Clinical findings discussed with patient. Dressing was changed and drain was removed today. - We will continue to follow cultures, will defer all antibiotics to Dr. Hartley. - Anticipate discharge tomorrow. Patient will follow-up with Dr. Armas in the office 1 week after discharge.
--- NOTE | 2018-05-13 15:03 | P.PN ---
Subjective Progress Note Date: 05/12/18 Interval history:22-year-old admitted for abscess of the right foot secondary to trauma from wood, 3 branch. Patient underwent I&D and the had a small the wound VAC right foot is postsurgically The patient was started on Toradol for pain to avoid Dilaudid. 05/12/2018 maintained on Unasyn as per infectious disease, local wound care as per orthopedic surgery. Cultures pending. Pain controlled. Afebrile. Dressing recently changed, due to saturated with serosanguineous drainage. Area of necrotic skin around the lateral ankle/foot reported. Constitutional: Denied any fatigue denied any fever. Cardio vascular: denied any chest pain, palpitations Gastrointestinal denied any nausea vomiting Pulmonary: Denied any shortness of breath cough Neurologic denied any new focal deficits Active Medications Hydrocodone Bitart/Acetaminophen ([place] 5-325) 1 each PO Q6HR PRN PRN Reason: Pain Scale 1 to 5 Last Admin: 05/11/18 17:13 Dose: 1 each Hydrocodone Bitart/Acetaminophen ([place] 5-325) 2 each PO Q6HR PRN PRN Reason: Pain Scale 6 to 10 Last Admin: 05/13/18 09:11 Dose: 2 each Diphenhydramine HCl (Benadryl) 25 mg PO HS PRN PRN Reason: Insomnia Enoxaparin Sodium (Lovenox) 40 mg SQ DAILY [facility] Last Admin: 05/13/18 09:55 Dose: 40 mg Famotidine (Pepcid) 40 mg PO BID [facility] Last Admin: 05/13/18 09:55 Dose: 40 mg Hydromorphone HCl (Dilaudid) 0.25 mg IVP Q3HR PRN PRN Reason: Pain Scale 1 to 3 Last Admin: 05/12/18 22:23 Dose: 0.25 mg Hydromorphone HCl (Dilaudid) 1 mg IVP Q3HR PRN PRN Reason: Pain Scale 7 to 10 Hydromorphone HCl (Dilaudid) 0.5 mg IVP Q3HR PRN PRN Reason: Pain Scale 4 to 6 Last Admin: 05/11/18 07:56 Dose: 0.5 mg Hydroxyzine Pamoate (Vistaril) 25 mg PO Q6HR PRN PRN Reason: Nausea/Anxiety Lactated Ringer's (Lactated Ringers) 1,000 mls @ 100 mls/hr IV .Q10H [facility] Last Admin: 05/13/18 05:55 Dose: Not Given Lactated Ringer's (Lactated Ringers) 1,000 mls @ 20 mls/hr IV .Q24H [facility] Last Admin: 05/12/18 20:07 Dose: Not Given Ampicillin Sodium/Sulbactam (Sodium 3 gm/ Sodium Chloride) 100 mls @ 200 mls/ hr IVPB Q6HR [facility] Last Admin: 05/13/18 11:15 Dose: 200 mls/hr Ketorolac Tromethamine (Toradol) 30 mg IVP Q6HR PRN PRN Reason: Pain Stop: 05/15/18 15:00 Last Admin: 05/13/18 13:30 Dose: 30 mg Lidocaine HCl (.Xylocaine 1% Inj (10mg/Ml) For Iv Start) 0.1 ml INTRADERMA PER PROTOCOL PRN PRN Reason: IV Start Melatonin (Melatonin) 10 mg PO [facility] Last Admin: 05/12/18 20:00 Dose: 10 mg Naloxone HCl (Narcan) 0.2 mg IV Q2M PRN PRN Reason: Opioid Reversal Nicotine (Habitrol 7mg/24hr Patch) 1 patch TRANSDERM DAILY [facility] Last Admin: 05/13/18 07:41 Dose: Not Given Ondansetron HCl (Zofran) 4 mg IVP Q8HR PRN PRN Reason: Nausea And Vomiting Last Admin: 05/11/18 11:56 Dose: 4 mg Senna/Docusate Sodium (Senokot-S) 2 each PO HS PRN PRN Reason: Constipation Last Admin: 05/12/18 08:19 Dose: 2 each Sertraline HCl (Zoloft) 100 mg PO [facility] Last Admin: 05/12/18 20:00 Dose: 100 mg Temazepam (Restoril) 15 mg PO HS PRN PRN Reason: Insomnia Objective - Vital Signs Vital signs: Vital Signs Temp 97.4 F L 05/12/18 15:19 Pulse 56 L 05/12/18 15:19 Resp 18 05/12/18 15:19 BP 120/65 05/12/18 15:19 Pulse Ox 96 05/12/18 15:19 Intake & Output 05/11/18 05/12/18 05/12/18 18:59 06:59 18:59 Intake Total 900 100 Output Total 2 Balance 898 100 Intake: IV 900 Oral 100 Output: Estimated Blood Loss 2 Other: Voiding Method Urinal # Voids 3 2 2 # Bowel Movements 0 - Exam GENERAL: The patient is alert and oriented x3, sitting up in bed, no acute distress. HEENT: Pupils are round and equally reacting to light. EOMI. No scleral icterus. No conjunctival pallor. Normocephalic, atraumatic. No pharyngeal erythema. CARDIOVASCULAR: S1 and S2 present. No murmurs, rubs, or gallops. PULMONARY: Chest is clear to auscultation, no wheezing or crackles. ABDOMEN: Soft, nontender, nondistended, normoactive bowel sounds. No palpable organomegaly. EXTREMITIES: No cyanosis, clubbing, or pedal edema. NEUROLOGICAL: Gross neurological examination did not reveal any focal deficits. SKIN: No rashes. Right foot dressing recently changed, clean dry and intact, toes warm and pink. [place] drain with serosanguineous drainage. Microbiology 05/11/18 13:10 Foot - Right Anaerobic Culture - Preliminary 05/11/18 13:10 Foot - Right Anaerobic Culture - Preliminary 05/11/18 13:10 Foot - Right Gram Stain - Final 05/11/18 13:10 Foot - Right Wound Culture - Final 05/11/18 13:10 Foot - Right Gram Stain - Final 05/11/18 13:10 Foot - Right Wound Culture - Final 05/11/18 13:10 Foot - Right Fungal Culture - Preliminary 05/11/18 13:10 Foot - Right Fungal Culture - Preliminary - Labs CBC & Chem 7: 05/10/18 08:58 05/13/18 08:41 Labs: Abnormal Lab Results - Last 24 Hours (Table) 05/12/18 Range/Units 07:27 Chloride 111 H (98-107) mmol/L Glucose 105 H (74-99) mg/dL Microbiology - Last 24 Hours (Table) 05/11/18 13:10 Gram Stain - Preliminary Foot - Right Wound Culture - Preliminary 05/11/18 13:10 Gram Stain - Preliminary Foot - Right Wound Culture - Preliminary 05/11/18 13:10 Anaerobic Culture - Preliminary Foot - Right 05/11/18 13:10 Fungal Culture - Preliminary Foot - Right 05/11/18 13:10 Anaerobic Culture - Preliminary Foot - Right 05/11/18 13:10 Fungal Culture - Preliminary Foot - Right Assessment and Plan Assessment: -Right foot abscess secondary to laceration from penetrating injury from a tree branch: Status post incision and drainage twice. -Nicotine dependence -Obesity, BMI 30.3 Plan: Continue on current medication regime ,monitoring and symptomatic treatment. Maintain IV antibiotics as per ID. wound care as per orthopedics, may need further I&D given necrotic area. Prognosis guarded given multiple complex medical issues. The impression and plan of care has been dictated as directed. : I performed a history and examination of this patient, discussed the same with the dictator. I agree with the dictator's note ,documented as a scribe. Any additional findings or plans will be noted.
--- NOTE | 2018-05-13 15:25 | P.PN ---
Subjective Progress Note Date: 05/13/18 Interval history:22-year-old admitted for abscess of the right foot secondary to trauma from wood, 3 branch. Patient underwent I&D and the had a small the wound VAC right foot is postsurgically The patient was started on Toradol for pain to avoid Dilaudid. 05/12/2018 maintained on Unasyn as per infectious disease, local wound care as per orthopedic surgery. Cultures pending. Pain controlled. Afebrile. Dressing recently changed, due to saturated with serosanguineous drainage. Area of necrotic skin around the lateral ankle/foot reported. 05/13/2018 [place] drain removed. Pain controlled. Maintained on IV antibiotics of Unasyn as per infectious disease, afebrile. Constitutional: Denied any fatigue denied any fever. Cardio vascular: denied any chest pain, palpitations Gastrointestinal denied any nausea vomiting Pulmonary: Denied any shortness of breath cough Neurologic denied any new focal deficits Active Medications Hydrocodone Bitart/Acetaminophen ([place] 5-325) 1 each PO Q6HR PRN PRN Reason: Pain Scale 1 to 5 Last Admin: 05/11/18 17:13 Dose: 1 each Hydrocodone Bitart/Acetaminophen ([place] 5-325) 2 each PO Q6HR PRN PRN Reason: Pain Scale 6 to 10 Last Admin: 05/13/18 09:11 Dose: 2 each Diphenhydramine HCl (Benadryl) 25 mg PO HS PRN PRN Reason: Insomnia Enoxaparin Sodium (Lovenox) 40 mg SQ DAILY [facility] Last Admin: 05/13/18 09:55 Dose: 40 mg Famotidine (Pepcid) 40 mg PO BID [facility] Last Admin: 05/13/18 09:55 Dose: 40 mg Hydromorphone HCl (Dilaudid) 0.25 mg IVP Q3HR PRN PRN Reason: Pain Scale 1 to 3 Last Admin: 05/12/18 22:23 Dose: 0.25 mg Hydromorphone HCl (Dilaudid) 1 mg IVP Q3HR PRN PRN Reason: Pain Scale 7 to 10 Hydromorphone HCl (Dilaudid) 0.5 mg IVP Q3HR PRN PRN Reason: Pain Scale 4 to 6 Last Admin: 05/11/18 07:56 Dose: 0.5 mg Hydroxyzine Pamoate (Vistaril) 25 mg PO Q6HR PRN PRN Reason: Nausea/Anxiety Lactated Ringer's (Lactated Ringers) 1,000 mls @ 100 mls/hr IV .Q10H [facility] Last Admin: 05/13/18 05:55 Dose: Not Given Lactated Ringer's (Lactated Ringers) 1,000 mls @ 20 mls/hr IV .Q24H [facility] Last Admin: 05/12/18 20:07 Dose: Not Given Ampicillin Sodium/Sulbactam (Sodium 3 gm/ Sodium Chloride) 100 mls @ 200 mls/ hr IVPB Q6HR [facility] Last Admin: 05/13/18 11:15 Dose: 200 mls/hr Ketorolac Tromethamine (Toradol) 30 mg IVP Q6HR PRN PRN Reason: Pain Stop: 05/15/18 15:00 Last Admin: 05/13/18 13:30 Dose: 30 mg Lidocaine HCl (.Xylocaine 1% Inj (10mg/Ml) For Iv Start) 0.1 ml INTRADERMA PER PROTOCOL PRN PRN Reason: IV Start Melatonin (Melatonin) 10 mg PO HS [facility] Last Admin: 05/12/18 20:00 Dose: 10 mg Naloxone HCl (Narcan) 0.2 mg IV Q2M PRN PRN Reason: Opioid Reversal Nicotine (Habitrol 7mg/24hr Patch) 1 patch TRANSDERM DAILY [facility] Last Admin: 05/13/18 07:41 Dose: Not Given Ondansetron HCl (Zofran) 4 mg IVP Q8HR PRN PRN Reason: Nausea And Vomiting Last Admin: 05/11/18 11:56 Dose: 4 mg Senna/Docusate Sodium (Senokot-S) 2 each PO HS PRN PRN Reason: Constipation Last Admin: 05/12/18 08:19 Dose: 2 each Sertraline HCl (Zoloft) 100 mg PO HS [facility] Last Admin: 05/12/18 20:00 Dose: 100 mg Temazepam (Restoril) 15 mg PO HS PRN PRN Reason: Insomnia Objective - Vital Signs Vital signs: Vital Signs Temp 98.2 F 05/13/18 13:58 Pulse 59 L 05/13/18 13:58 Resp 18 05/13/18 13:58 BP 123/70 05/13/18 13:58 Pulse Ox 97 05/13/18 13:58 Intake & Output 05/12/18 05/13/18 05/13/18 18:59 06:59 18:59 Intake Total 480 750 Balance 480 750 Intake: Oral 480 750 Other: Voiding Method Urinal Urinal # Voids 2 1 3 # Bowel Movements 1 - Exam GENERAL: The patient is alert and oriented x3, sitting up in bed, no acute distress. HEENT: Pupils are round and equally reacting to light. EOMI. No scleral icterus. No conjunctival pallor. Normocephalic, atraumatic. No pharyngeal erythema. CARDIOVASCULAR: S1 and S2 present. No murmurs, rubs, or gallops. PULMONARY: Chest is clear to auscultation, no wheezing or crackles. ABDOMEN: Soft, nontender, nondistended, normoactive bowel sounds. No palpable organomegaly. EXTREMITIES: No cyanosis, clubbing, or pedal edema. NEUROLOGICAL: Gross neurological examination did not reveal any focal deficits. SKIN: No rashes. Right foot dressing, clean, dry, intact, toes warm and pink, move freely. [place] drain discontinued. Microbiology 05/11/18 13:10 Foot - Right Anaerobic Culture - Preliminary 05/11/18 13:10 Foot - Right Anaerobic Culture - Preliminary 05/11/18 13:10 Foot - Right Gram Stain - Final 05/11/18 13:10 Foot - Right Wound Culture - Final 05/11/18 13:10 Foot - Right Gram Stain - Final 05/11/18 13:10 Foot - Right Wound Culture - Final 05/11/18 13:10 Foot - Right Fungal Culture - Preliminary 05/11/18 13:10 Foot - Right Fungal Culture - Preliminary - Labs CBC & Chem 7: 05/10/18 08:58 05/13/18 08:41 Labs: Abnormal Lab Results - Last 24 Hours (Table) 05/13/18 Range/Units 08:41 Chloride 109 H (98-107) mmol/L Microbiology - Last 24 Hours (Table) 05/11/18 13:10 Anaerobic Culture - Preliminary Foot - Right 05/11/18 13:10 Anaerobic Culture - Preliminary Foot - Right 05/11/18 13:10 Gram Stain - Final Foot - Right Wound Culture - Final 05/11/18 13:10 Gram Stain - Final Foot - Right Wound Culture - Final Assessment and Plan Assessment: -Right foot abscess secondary to laceration from penetrating injury from a tree branch: Status post incision and drainage twice. -Nicotine dependence -Obesity, BMI 30.3 Plan: Continue on current medication regime ,monitoring and symptomatic treatment. Cultures pending. Maintain IV antibiotics as per ID. orthopedic surgery discussing potential discharge tomorrow. Prognosis guarded given multiple complex medical issues. The impression and plan of care has been dictated as directed. : I performed a history and examination of this patient, discussed the same with the dictator. I agree with the dictator's note ,documented as a scribe. Any additional findings or plans will be noted.
[2018-05-13] MEDS: MELATONIN 5 MG TABLET PO SCH (21:36)
[2018-05-13] MEDS: SERTRALINE 100 MG TAB PO SCH (21:37)
--- NOTE | 2018-05-13 23:59 | PN ---
PROGRESS NOTE DATE OF SERVICE: 05/13/2018. REASON FOR FOLLOWUP: Right foot contaminated wound, traumatic. INTERVAL HISTORY: The patient is currently afebrile, has been breathing comfortably. Denies having any chest pain. No cough. No abdominal pain. He has been complaining of some pain to the right foot. No worsening or any significant drainage. EXAMINATION: Blood pressure is 123/70 with a pulse of 69, temperature 98.2, he is 97% on room air. GENERAL DESCRIPTION: A middle-aged male lying in bed in no distress. RESPIRATORY SYSTEM: Unlabored breathing. Clear to auscultation anteriorly. HEART: S1, S2. Regular rate and rhythm. ABDOMEN: Soft. EXTREMITIES: Right foot plantar aspect the wound is currently dressed up. Did have a [place] drain. No significant drainage. No significant cellulitis or warmth was noticed to the foot. Did have some black lateral side of the foot. LABS: BUN of 17, creatinine 0.6, white count 7.6. His right foot cultures remain to be negative. DIAGNOSTIC IMPRESSION AND PLAN: Patient with right foot traumatic wound, currently status post initial debridement followed by a repeat debridement and a primary closure of this wound. All his cultures were negative. The patient did not have any fever or elevated white count. He has received a significant amount of IV antibiotic in the form of . We will transition that oral Augmentin with close outpatient followup. There is currently no evidence of any secondary infection. Plan of care discussed with the nurse practitioner for the orthopedics. Continue supportive care. MMODL / IJN: [id number] /
[2018-05-14] MEDS: AMPICILLIN-SULBACTAM 3 GM in SODIUM CHLORIDE 0.9% 100 ML IVPB SCH ×5 (00:11→23:22)
[2018-05-14] MEDS: LACTATED RINGERS 1,000 ML IV SCH ×5 (00:12→23:18)
[2018-05-14] MEDS: NICOTINE 7MG/24HR PATCH TRANSDERM SCH (08:31)
[2018-05-14] MEDS: FAMOTIDINE 20 MG TAB PO SCH ×2 (08:47→20:56)
[2018-05-14] MEDS: ENOXAPARIN 40 MG/0.4 ML SYRINGE SQ SCH (08:48)
[2018-05-14] MEDS: HYDROcodone/APAP 5-325MG 1 EACH TAB PO PRN ×2 (09:10→17:19)
[2018-05-14 09:48] LABS: Basophils % (A) 1 %; Eosinophils # (A) 0.1 k/uL (0-0.7); Eosinophils % (A) 2 %; HCT 39.6 % (39.0-53.0); HGB 13.1 gm/dL (13.0-17.5); Lymphocytes # (A) 1.2 k/uL (1.0-4.8); Lymphocytes % (A) 26 %; MCH 27.4 pg (25.0-35.0); MCHC 33.2 g/dL (31.0-37.0); MCV 82.7 fL (80.0-100.0); Mean Platelet Volume 7.4; Monocytes # (A) 0.3 k/uL (0-1.0); Monocytes % (A) 7 %; Neutrophils # (A) 2.9 k/uL (1.3-7.7); Neutrophils % (A) 62 %; Platelet Count 166 k/uL (150-450); RBC 4.79 m/uL (4.30-5.90); RDW 13.7 % (11.5-15.5); WBC 4.7 k/uL (3.8-10.6)
[2018-05-14 09:58] LABS: Anion Gap 6 mmol/L; Blood Urea Nitrogen 15 mg/dL (9-20); Carbon Dioxide 29 mmol/L (22-30); Chloride 107 mmol/L (98-107); Glucose 90 mg/dL (74-99); Potassium 4.4 mmol/L (3.5-5.1); Sodium 142 mmol/L (137-145)
[2018-05-14] MEDS: KETOROLAC 30 MG/ML 1 ML VIAL IVP PRN ×2 (13:13→21:29)
--- NOTE | 2018-05-14 17:24 | P.PN ---
Subjective Progress Note Date: 05/14/18 Interval history:22-year-old admitted for abscess of the right foot secondary to trauma from wood, 3 branch. Patient underwent I&D and the had a small the wound VAC right foot is postsurgically The patient was started on Toradol for pain to avoid Dilaudid. 05/12/2018 maintained on Unasyn as per infectious disease, local wound care as per orthopedic surgery. Cultures pending. Pain controlled. Afebrile. Dressing recently changed, due to saturated with serosanguineous drainage. Area of necrotic skin around the lateral ankle/foot reported. 05/13/2018 [place] drain removed. Pain controlled. Maintained on IV antibiotics of Unasyn as per infectious disease, afebrile. 05/14/2018 staff reports surgical site appeared purulent, orthopedics removed a few sutures, opened up area and packed. Continues on IV antibiotics. Pain controlled. Afebrile. Constitutional: Denied any fatigue denied any fever. Cardio vascular: denied any chest pain, palpitations Gastrointestinal denied any nausea vomiting Pulmonary: Denied any shortness of breath cough Neurologic denied any new focal deficits Active Medications Generic Name Dose Route Start Last Admin Trade Name Freq PRN Reason Stop Dose Admin Hydrocodone Bitart/Acetaminophen 1 each 05/09/18 11:02 05/11/18 17:13 [place] 5-325 PO 1 each Q6HR PRN Administration Pain Scale 1 to 5 Hydrocodone Bitart/Acetaminophen 2 each 05/09/18 11:02 05/14/18 09:10 [place] 5-325 PO 2 each Q6HR PRN Administration Pain Scale 6 to 10 Diphenhydramine HCl 25 mg 05/09/18 11:02 Benadryl PO HS PRN Insomnia Enoxaparin Sodium 40 mg 05/09/18 19:45 05/14/18 08:48 Lovenox SQ 40 mg DAILY TIM Administration Famotidine 40 mg 05/11/18 21:00 05/14/18 08:47 Pepcid PO 40 mg BID TIM Administration Hydromorphone HCl 0.25 mg 05/09/18 11:02 05/12/18 22:23 Dilaudid IVP 0.25 mg Q3HR PRN Administration Pain Scale 1 to 3 Hydromorphone HCl 1 mg 05/09/18 11:02 Dilaudid IVP Q3HR PRN Pain Scale 7 to 10 Hydromorphone HCl 0.5 mg 05/09/18 11:02 05/11/18 07:56 Dilaudid IVP 0.5 mg Q3HR PRN Administration Pain Scale 4 to 6 Hydroxyzine Pamoate 25 mg 05/09/18 11:02 Vistaril PO Q6HR PRN Nausea/Anxiety Lactated Ringer's 1,000 mls @ 100 mls/hr 05/09/18 11:15 05/14/18 12:03 Lactated Ringers IV Not Given .Q10H TIM Lactated Ringer's 1,000 mls @ 20 mls/hr 05/10/18 20:15 05/14/18 12:03 Lactated Ringers IV 20 mls/hr .Q24H TIM Administration Ampicillin Sodium/Sulbactam 100 mls @ 200 mls/hr 05/11/18 00:00 05/14/18 13: 14 Sodium 3 gm/ Sodium Chloride IVPB 200 mls/hr Q6HR TIM Administration Ketorolac Tromethamine 30 mg 05/11/18 15:00 05/14/18 13:13 Toradol IVP 05/15/18 15:00 30 mg Q6HR PRN Administration Pain Lidocaine HCl 0.1 ml 05/10/18 20:08 .Xylocaine 1% Inj (10mg/Ml) For Iv Start INTRADERMA PER PROTOCOL PRN IV Start Melatonin 10 mg 05/08/18 23:00 05/13/18 21:36 Melatonin PO 10 mg HS TIM Administration Naloxone HCl 0.2 mg 05/08/18 19:30 Narcan IV Q2M PRN Opioid Reversal Nicotine 1 patch 05/09/18 19:45 05/14/18 08:31 Habitrol 7mg/24hr Patch TRANSDERM Not Given DAILY TIM Ondansetron HCl 4 mg 05/08/18 19:30 05/11/18 11:56 Zofran IVP 4 mg Q8HR PRN Administration Nausea And Vomiting Senna/Docusate Sodium 2 each 05/09/18 11:02 05/12/18 08:19 Senokot-S PO 2 each HS PRN Administration Constipation Sertraline HCl 100 mg 05/08/18 23:00 05/13/18 21:37 Zoloft PO 100 mg HS TIM Administration Temazepam 15 mg 05/09/18 11:02 Restoril PO HS PRN Insomnia Objective - Vital Signs Vital signs: Vital Signs Temp 98.6 F 05/14/18 15:13 Pulse 54 L 05/14/18 15:13 Resp 18 05/14/18 15:13 BP 122/68 05/14/18 15:13 Pulse Ox 98 05/14/18 15:13 Intake & Output 05/13/18 05/14/18 05/14/18 18:59 06:59 18:59 Intake Total 900 Output Total 1000 800 Balance -100 -800 Intake: Oral 900 Output: Urine 1000 800 Other: Voiding Method Urinal Urinal # Voids 3 1 4 # Bowel Movements 1 - Exam GENERAL: The patient is alert and oriented x3, sitting up in bed, no acute distress. HEENT: Pupils are round and equally reacting to light. EOMI. No scleral icterus. No conjunctival pallor. Normocephalic, atraumatic. No pharyngeal erythema. CARDIOVASCULAR: S1 and S2 present. No murmurs, rubs, or gallops. PULMONARY: Chest is clear to auscultation, no wheezing or crackles. No rhonchi ABDOMEN: Soft, nontender, nondistended, normoactive bowel sounds. No palpable organomegaly. EXTREMITIES: No cyanosis, clubbing, or pedal edema. NEUROLOGICAL: Gross neurological examination did not reveal any focal deficits. SKIN: No rashes. Right foot dressing, clean, dry, intact, toes warm and pink, move freely. Microbiology 05/11/18 13:10 Foot - Right Anaerobic Culture - Preliminary 05/11/18 13:10 Foot - Right Anaerobic Culture - Preliminary 05/11/18 13:10 Foot - Right Gram Stain - Final 05/11/18 13:10 Foot - Right Wound Culture - Final 05/11/18 13:10 Foot - Right Gram Stain - Final 05/11/18 13:10 Foot - Right Wound Culture - Final 05/11/18 13:10 Foot - Right Fungal Culture - Preliminary 05/11/18 13:10 Foot - Right Fungal Culture - Preliminary - Labs CBC & Chem 7: 05/14/18 09:30 05/14/18 09:30 Labs: Microbiology - Last 24 Hours (Table) 05/11/18 13:10 Anaerobic Culture - Preliminary Foot - Right 05/11/18 13:10 Anaerobic Culture - Preliminary Foot - Right 05/11/18 13:10 Gram Stain - Final Foot - Right Wound Culture - Final 05/11/18 13:10 Gram Stain - Final Foot - Right Wound Culture - Final Assessment and Plan Assessment: -Right foot abscess secondary to laceration from penetrating injury from a tree branch: Status post incision and drainage twice. -Nicotine dependence -Obesity, BMI 30.3 Plan: Continue on current medication regime ,monitoring and symptomatic treatment. Pain management . Follow cultures closely, Maintain IV antibiotics. orthopedic surgery opened surgical site at bedside today, packed , observing overnight .Potential discharge tomorrow. Prognosis guarded given multiple complex medical issues. The impression and plan of care has been dictated as directed. : I performed a history and examination of this patient, discussed the same with the dictator. I agree with the dictator's note ,documented as a scribe. Any additional findings or plans will be noted.
--- NOTE | 2018-05-14 18:04 | P.PN ---
Subjective Progress Note Date: 05/14/18 This is a 22-year-old male who presented to the emergency department 05/08/18 with injury to his right foot. [place] taking down a tall, broken tree when a sharp, jagged part of the tree impaled his work boot on the lateral aspect of his foot. He sustained a large laceration with wound contamination. The wound was irrigated in the emergency department on 05/08/18. He is admitted for IV antibiotics and surgical debridement. Patient is status post irrigation and debridement of a large laceration to the lateral and plantar aspect of the right foot 2 with delayed primary closure on 05/12/[address] Armas. Currently, patient is doing well from an orthopedic standpoint. He states he has been remaining non-weight bearing of the operative foot, pain of the right foot is well-controlled. He denies chest pain, shortness of breath, nausea, vomiting, fevers, chills. Dr. Key also present during examination. Patient has no new complaints today. Vital signs stable. Objective - Vital Signs Vital signs: Vital Signs Temp 98.6 F 05/14/18 15:13 Pulse 54 L 05/14/18 15:13 Resp 18 05/14/18 15:13 BP 122/68 05/14/18 15:13 Pulse Ox 98 05/14/18 15:13 Intake & Output 05/13/18 05/14/18 05/14/18 18:59 06:59 18:59 Intake Total 900 Output Total 1000 800 Balance -100 -800 Intake: Oral 900 Output: Urine 1000 800 Other: Voiding Method Urinal Urinal # Voids 3 1 4 # Bowel Movements 1 - Exam Patient is sitting up in bed in no acute distress. He is alert and oriented 3. Exam of the right lower extremity reveals his dressing has minimal amount of serosanguineous drainage. Dressing is changed. There is an area of the proximal laceration that is no longer well-approximated, compared to yesterday. Sutures around this area are removed, which results in increased expression of seroanguineous drainage. 1-2 sutures also removed from plantar foot laceration. There is an area of necrotic skin about the lateral ankle/foot. There is mild erythema to this area. Decreased sensation to the dorsal lateral toes. He has fairly normal sensation to the plantar aspect of the toes. Patient has no trouble moving toes. Dorsalis pedis pulse palpable. Foot is warm and well- perfused with brisk capillary refill. - Labs CBC & Chem 7: 05/14/18 09:30 05/14/18 09:30 Labs: Microbiology - Last 24 Hours (Table) 05/11/18 13:10 Anaerobic Culture - Preliminary Foot - Right 05/11/18 13:10 Anaerobic Culture - Preliminary Foot - Right 05/11/18 13:10 Gram Stain - Final Foot - Right Wound Culture - Final 05/11/18 13:10 Gram Stain - Final Foot - Right Wound Culture - Final Assessment and Plan Assessment: Laceration of right foot, status-post incision and drainage Plan: - Clinical findings discussed with patient. Multiple sutures removed bedside today to allow for increased drainage of wound. We will keep this wound dry, and packed with aquacel silver packing, per recommendations given by Dr. Hartley. - Will defer all antibiotics to Dr. Hartley. - Anticipate discharge tomorrow. Patient will follow-up with Dr. Armas in the office 1 week after discharge.
[2018-05-14] MEDS: SERTRALINE 100 MG TAB PO SCH (20:56)
[2018-05-14] MEDS: MELATONIN 5 MG TABLET PO SCH (20:56)
[2018-05-15] MEDS: AMPICILLIN-SULBACTAM 3 GM in SODIUM CHLORIDE 0.9% 100 ML IVPB SCH ×2 (06:35→12:19)
[2018-05-15 07:59] VITALS: BP 138/79; PULSE 51; RESP 16; TEMP 97.8
--- NOTE | 2018-05-15 08:31 | PN ---
PROGRESS NOTE DATE OF SERVICE: 05/14/2018. REASON FOR FOLLOWUP: Right foot wound. INTERVAL HISTORY: The patient is afebrile. He has been breathing comfortably. Denies having any chest pain. No abdominal pain or pain to the right foot area. PHYSICAL EXAMINATION: Blood pressure 115/54 with a pulse of 51, temperature 96.8. He is 93% on room air. General description is a middle-aged male lying in bed in no distress. RESPIRATORY SYSTEM: Unlabored breathing. Clear to auscultation anteriorly. HEART: S1, S2. Regular rate and rhythm. ABDOMEN: Soft, no tenderness. Lateral plantar aspect wound has been open. No significant purulent drainage. The right foot lateral site wound with site with some serous drainage. LABS: Hemoglobin 13.9, white 4.7, BUN of 15, creatinine 0.8. The wound culture has been negative. DIAGNOSTIC IMPRESSION AND PLAN: Patient with right foot traumatic wound, status post initial debridement with subsequent closure. Patient pressure wound has been opened up today. No noticed. Will recommend local wound care with Aquacel Silver dressing and keep the area dry and apply to the right lateral foot wound area. Currently on Unasyn, to continue finish therapy with a short course of oral antibiotic on discharge. Continue supportive care. MMODL / IJN: [id number] /
[2018-05-15] MEDS: FAMOTIDINE 20 MG TAB PO SCH (08:49)
[2018-05-15] MEDS: HYDROcodone/APAP 5-325MG 1 EACH TAB PO PRN (08:49)
[2018-05-15] MEDS: ENOXAPARIN 40 MG/0.4 ML SYRINGE SQ SCH (08:49)
[2018-05-15] MEDS: NICOTINE 7MG/24HR PATCH TRANSDERM SCH (08:50)
[2018-05-15] MEDS: LACTATED RINGERS 1,000 ML IV SCH (08:55)
--- NOTE | 2018-05-15 09:33 | P.DS ---
Providers Date of admission: 05/10/18 13:39 Expected date of discharge: 05/15/18 Attending physician: Nish Armas Consults: 05/08/18 23:37 Consult Physician Routine Consulting Provider: Roe Wynn Consult Reason/Comments: Medical management Do you want consulting provider notified?: Already Contacted 05/09/18 11:02 Consult Physician Routine Consulting Provider: Diana Hartley Consult Reason/Comments: Eval right foot wound, abx management. Do you want consulting provider notified?: Yes Primary care physician: Gilmer Chappell - Discharge Diagnosis(es) (1) Laceration of foot, right, complicated Current Visit: Yes Status: Acute Hospital Course: This is a 22-year-old male who was admitted after a tree impaled his right foot while working at home. Patient was evaluated in the emergency room and admitted to orthopedics for further management. Patient was admitted to the hospital on 05/10/2018. Patient underwent 2 surgical irrigation and debridements of the right foot with delayed primary closure on 05/10/2018 and 05/11/2018. Procedures are performed without complication or sequelae. Labs and vital signs are stable and discharge. Cultures are negative. Fungal cultures pending. Patient has been evaluated by infectious disease and they are managing the patient's oral antibiotics and wound care. On day of discharge patient's wound is healing well. Dressing is removed and a new dressing is applied. Packing is in place. There is a minimal amount of serosanguineous drainage. Remaining sutures are intact. Sensation is intact, slightly decreased to the dorsal aspect of the 4th and 5th toes. Patient has good motion of the foot. Neurovascular status and circulatory status are intact. Patient states that his pain is well controlled on day of discharge. Patient is discharged home in good condition. Patient Condition at Discharge: Serious Plan - Discharge Summary New Discharge Prescriptions: New Amoxicillin/Potassium Clav [Augmentin 875-125 Tablet] 1 tab PO Q12HR #20 tab Sennosides [Senokot] 1 tab PO BID #60 tablet HYDROcodone/APAP 5-325MG [[place] 5-325] 1 - 2 tab PO Q6HR PRN #56 tab PRN Reason: Pain No Action Sertraline [Zoloft] 100 mg PO HS Melatonin 10 mg PO HS Discharge Medication List Melatonin 10 mg PO HS 02/09/19 [History] Sertraline [Zoloft] 100 mg PO HS 05/08/18 [History] Amoxicillin/Potassium Clav [Augmentin 875-125 Tablet] 1 tab PO Q12HR #20 tab [Rx] HYDROcodone/APAP 5-325MG [[place] 5-325] 1 - 2 tab PO Q6HR PRN #56 tab 05/15/18 [ Rx] Sennosides [Senokot] 1 tab PO BID #60 tablet 05/15/18 [Rx] Follow up Appointment(s)/Referral(s): Gilmer Chappell DO [Primary Care Provider] - 1-2 days [facility], [NON-STAFF] - Nish Armas MD [STAFF PHYSICIAN] - 1 Week Diana Hartley MD [STAFF PHYSICIAN] - Patient Instructions/Handouts: Laceration (DC) Activity/Diet/Wound Care/Special Instructions: Antibiotics per ID. Change dressing daily. Use crutches or knee roller for ambulation. Discharge Disposition: HOME SELF-CARE
[2018-05-15 11:55] LABS: Anion Gap 9 mmol/L; Blood Urea Nitrogen 17 mg/dL (9-20); Calcium 9.2 mg/dL (8.4-10.2); Carbon Dioxide 24 mmol/L (22-30); Chloride 109 mmol/L (98-107); Glucose 120 mg/dL (74-99); Potassium 4.5 mmol/L (3.5-5.1); Sodium 142 mmol/L (137-145)
[2018-05-15] MEDS: KETOROLAC 30 MG/ML 1 ML VIAL IVP PRN (13:12)
--- NOTE | 2018-05-15 14:37 | PN ---
PROGRESS NOTE DATE OF SERVICE: 05/15/2018. REASON FOR FOLLOWUP: Right foot traumatic wound and a questions of cellulitis. INTERVAL HISTORY: The patient is currently afebrile. He is breathing comfortably. Denies any chest pain, cough or any abdominal pain. Otherwise, has pain in the right foot area. PHYSICAL EXAMINATION: Blood pressure 130/79 with a pulse of 51, temperature 97.8. He is 96% on room air. General description is a young male lying in bed in no distress. Respiratory system: Unlabored breathing. Clear to auscultation anteriorly. Heart S1, S2. Regular rate and rhythm. Abdomen soft, no tenderness. Right foot lateral border wound with some necrotic skin. No purulent drainage or any cellulitis. The plantar wound with no purulent drainage either. LABS: White count 4.7, BUN of 17, creatinine 0.1. The patient all cultures have been negative. DIAGNOSTIC IMPRESSION AND PLAN: Patient with right foot traumatic wound status post debridement followed by repeat surgery and primary closure post stitches has been removed yesterday by the Ortho. Recommend local wound care with Aquacel Silver packing of the wound. Antibiotics transitioned to oral Augmentin 875 b.i.d. Patient advised to follow up in the wound care center next week. Otherwise, offloading right foot to help heal this wound. Continue supportive care. MMODL / IJN: [id number] /
--- NOTE | 2018-05-15 17:49 | PN ---
PROGRESS NOTE DATE OF SERVICE: 05/15/2018 This 22-year-old gentleman who was admitted with right foot abscess secondary to laceration penetrating injury is being closely monitored. Cultures are negative so far. Infectious Disease has recommended oral Augmentin. No chest pain. No palpitations. No fever. EXAM: Alert and oriented x3. Pulse is 51, blood pressure 130/77, respirations 16, temperature 97.2, pulse ox 98% on room air. HEENT: Conjunctivae normal. CARDIOVASCULAR: S1, S2 muffled. Respiratory: Breath sounds diminished in the bases. No rhonchi. No crackles. Abdomen is soft, nontender. Legs: Foot injury present. Nervous system: No focal deficits. LABS: Noted. ASSESSMENT: 1. Right foot abscess and cellulitis secondary to laceration from penetrating injury from a tree branch, status post incision and drainage twice. 2. History of nicotine dependence. 3. Obesity with body mass of 30.3. RECOMMENDATIONS AND DISCUSSION: Recommend to continue current management. Continue with symptomatic treatment. Continue Augmentin. Otherwise, closely follow with primary physician and as well as Orthopedic surgery. Further recommendations to follow. MMODL / IJN: [id number] /
--- NOTE | 2018-05-17 12:01 | CDI ---
Documentation Clarification Form Date: 05/17/18 From: Judith Belcher Phone: If you have a question regarding this query, please contact Lidia Leyva at [phone] between 8am and 5pm. Admit Date: 05/10/2018 1:39:00 PM Patient Name: Neo Fuller Visit Number: [id number] Discharge Date: 05/15/2018 2:44:00 PM ATTENTION: The Clinical Documentation Specialists (CDI) and [facility] Coding Staff appreciate your assistance in clarifying documentation. Please respond to the clarification below the line at the bottom and electronically sign. The CDI & [facility] Coding staff will review the response and follow-up if needed. Please note: Queries are made part of the Legal Health Record. If you have any questions, please contact the author of this message via ITS. Dr. Nish Armas Per your operative note, a debridement was performed on 05/10/18 History/Risk Factors: Patient was admitted for laceration to the right foot after a tree fell on the foot and a piece of the tree impaled his foot. Clinical Indicators: Irregular penetrating through and through laceration to the right foot with contamination. Treatment: IV antibiotics and sharp debridement In order to capture the severity of condition and code the appropriate procedure ; could you please clarify is Excisional or Non-excisional: * Excisional debridement (the removal of necrotic, devitalized tissue or slough by means of cutting away of tissue) * Non-excisional debridement (the removal of necrotic, devitalized tissue or slough by means of flushing, brushing, or washing. (Irrigation) Other; please specify Unable to determine This was an excisional debridement as multiple areas of devitalized tissue needed to be sharply trimmed away, and several large and small pieces of wood needed to be removed manually with currettage and cut away as well. MARY CARMEND
--- NOTE | 2018-05-17 12:05 | CDI ---
Documentation Clarification Form Date: 05/17/18 From: Judith Belcher Phone: If you have a question regarding this query, please contact Lidia Leyva at [phone] between 8am and 5pm. Admit Date: 05/10/2018 1:39:00 PM Patient Name: Neo Fuller Visit Number: [id number] Discharge Date: 05/15/2018 2:44:00 PM ATTENTION: The Clinical Documentation Specialists (CDI) and [facility] Coding Staff appreciate your assistance in clarifying documentation. Please respond to the clarification below the line at the bottom and electronically sign. The CDI & [facility] Coding staff will review the response and follow-up if needed. Please note: Queries are made part of the Legal Health Record. If you have any questions, please contact the author of this message via ITS. Dr. Nish Armas Per your progress notes/operative note, a debridement was performed on 05/11 History/Risk Factors: Patient was admitted for laceration to the right foot after a tree fell on the foot and a piece of the tree impaled his foot. Debridement done on 05/10 with delayed primary closure. Clinical Indicators: Irregular penetrating through and through laceration to the right foot with contamination. Treatment: IV antibiotics and sharp debridement In order to capture the severity of condition and code the appropriate procedure ; could you please clarify if excisional or non-excisional: Excisional debridement (the removal of necrotic, devitalized tissue or slough by means of cutting away of tissue) Non-excisional debridement (the removal of necrotic, devitalized tissue or slough by means of flushing, brushing, or washing. (Irrigation) Other; please specify Unable to determine Excisional debridement was performed, sharply removing necrotic devitalized tissue. INÉS
== END 2018-05-15 14:44 | disposition home health service (06) | DRG 902 ==
LOC: EC 16:46 → 4MS4W 19:30 → OBSVTOIN 05-10 13:39
PROVIDERS: ADMIT Orthopaedic Surgery; ATTEND Orthopaedic Surgery
PROC: 0JBQ0ZZ Excision of Right Foot Subcutaneous Tissue and Fascia, Open Approach (ICD-10-PCS; principal; 2018-05-10)
PROC: 0JBQ0ZZ Excision of Right Foot Subcutaneous Tissue and Fascia, Open Approach (ICD-10-PCS; 2018-05-11)
DX: S91.321A Laceration with foreign body, right foot, initial encounter (principal); L03.115 Cellulitis of right lower limb; I96 Gangrene, not elsewhere classified; L02.611 Cutaneous abscess of right foot; E66.9 Obesity, unspecified; F17.210 Nicotine dependence, cigarettes, uncomplicated; Z68.30 Body mass index [BMI] 30.0-30.9, adult; Z79.899 Other long term (current) drug therapy; Z87.898 Personal history of other specified conditions; W45.8XXA Other foreign body or object entering through skin, initial encounter; Y92.9 Unspecified place or not applicable
CPT/HCPCS: 80048; 80170; 85025; 87070; 87075; 87102; 87205; 90471; 90715; 96365; 96366; 96375; 96376; 99284

== ENCOUNTER 2018-07-13 23:16 | Emergency (ER) | payer BC ==
[2018-07-13 23:35] VITALS: BP 132/86; PULSE 92; RESP 20; TEMP 98.6
[2018-07-14] MEDS ORDERED: KETOROLAC 30 MG/ML 1 ML VIAL IM STA
[2018-07-14] MEDS ORDERED: AMOXIC-POT CLAV 875MG STARTER 2 EACH TABLET PO STA
--- NOTE | 2018-07-14 00:01 | ED ---
Extremity Problem HPI - General Chief complaint: Extremity Problem,Nontraumatic Stated complaint: Rt foot wound infection Time Seen by Provider: 07/13/18 23:45 Source: patient Mode of arrival: ambulatory Limitations: no limitations - History of Present Illness Initial comments: 22-year-old male patient presents to the emergency department today for evalu ation of wound to the right foot. Patient had an accident and the beginning of April wear a tree punctured through the right lateral aspect of the foot through the plantar surface. Patient did undergo washout debridement in the operating room and has been receiving wound care since. Patient states he follows up for hyperbaric treatments and does see the network desktop support specialist at [facility]. Patient states tonight when they changed the dressing there was increased drainage and odor coming from the wound. Patient is not currently taking any antibiotics. States he is having increased pain in the foot with this. He denies any fever or chills.Patient denies any recent rash, shortness breath, chest pain, abdominal pain, nausea, vomiting, diarrhea, constipation, back pain, numbness, tingling, dizziness, weakness, hematuria, dysuria, urinary urgency, urinary frequency, headache, visual changes, or any other complaints. Patient takes norco at home for pain control. - Related Data Home Medications Medication Instructions Recorded Confirmed Melatonin 10 mg PO HS 05/08/18 07/13/18 Sertraline [Zoloft] 100 mg PO HS 05/08/18 07/13/18 Ascorbic Acid [Vitamin C] 2,000 mg PO HS 07/13/18 07/13/18 HYDROcodone/APAP 5-325MG [[place] 1 tab PO Q6HR PRN 07/13/18 07/13/18 5-325] Zinc 50 mg PO HS 07/13/18 07/13/18 Previous Rx's Medication Instructions Recorded Amoxic-Pot Clav 875-125Mg 1 tab PO Q12HR #20 tablet 07/14/18 [Augmentin 875-125] Allergies Allergy/AdvReac Type Severity Reaction Status Date / Time No Known Allergies Allergy Verified 07/13/18 23:45 Review of Systems ROS Statement: Those systems with pertinent positive or pertinent negative responses have been documented in the HPI. ROS Other: All systems not noted in ROS Statement are negative. Past Medical History Past Medical History: Syncope Additional Past Medical History / Comment(s): not dx, high BP, recurrent low BP, History of Any Multi-Drug Resistant Organisms: None Reported Past Surgical History: Orthopedic Surgery Additional Past Surgical History / Comment(s): Loop recorder placed about a year ago, right foot sx Past Psychological History: No Psychological Hx Reported Smoking Status: Current every day smoker Past Alcohol Use History: Occasional Past Drug Use History: None Reported General Exam Limitations: no limitations General appearance: alert, in no apparent distress, other (Physical well- developed, well-nourished adult male patient in no acute distress. Vital signs upon presentation are temperature 98.6F, pulse 92, respirations 20, blood pressure 132/86, pulse ox 99% on room air.) Respiratory exam: Present: normal lung sounds bilaterally. Absent: respiratory distress, wheezes, rales, rhonchi, stridor Cardiovascular Exam: Present: regular rate, normal rhythm, normal heart sounds. Absent: systolic murmur, diastolic murmur, rubs, gallop, clicks Extremities exam: Present: full ROM, normal capillary refill, other (There is a wound to the right lateral dorsal foot healing by secondary intention, presence of granulation tissue. There is mild surrounding erythema, swelling, warmth. No evidence of drainage currently. Skin is otherwise pink, warm, and dry. Pedal pulse is 2+ and equal bilaterally. ). Absent: normal inspection, tenderness, pedal edema, joint swelling, calf tenderness Neurological exam: Present: alert, oriented X3, CN II-XII intact Psychiatric exam: Present: normal affect, normal mood Skin exam: Present: warm, dry, intact, normal color. Absent: rash Course Vital Signs 07/13/18 23:30 Temperature 98.6 F Pulse Rate 92 Respiratory 20 Rate Blood Pressure 132/86 O2 Sat by Pulse 99 Oximetry Medical Decision Making - Medical Decision Making 22-year-old male patient presents emergency department today for evaluation of wound to the right foot. Physical examination did reveal a wound healing by secondary intention to the right lateral dorsal aspect of the foot. There is mild surrounding erythema and warmth. No current drainage. No odor. Patient is afebrile with stable vital signs. We will start Augmentin and instructed him to follow up with wound care as he has planned tomorrow. He does have [place] for pain control. He is given IM Toradol here in the emergency department for pain control. He is instructed to follow-up with the primary care physician for recheck as is possible. Return parameters discussed in detail. He verbalizes understanding and agrees with this plan. Disposition Clinical Impression: Infected wound Disposition: HOME SELF-CARE Condition: Good Instructions (If sedation given, give patient instructions): Wound Infection (ED) Additional Instructions: Continue dressing changes as directed. Follow-up with [facility] as soon as possible. Return to the emergency department immediately for any new, worsening, or concerning symptoms. Prescriptions: Amoxic-Pot Clav 875-125Mg [Augmentin 875-125] 1 tab PO Q12HR #20 tablet Is patient prescribed a controlled substance at d/c from ED?: No Referrals: Gilmer Chappell DO [Primary Care Provider] - 1-2 days Time of Disposition: 00:01
== END 2018-07-14 00:21 | disposition home or self-care (01) ==
LOC: EC 23:16
DX: S91.301A Unspecified open wound, right foot, initial encounter (principal); L08.9 Local infection of the skin and subcutaneous tissue, unspecified; F17.200 Nicotine dependence, unspecified, uncomplicated; Z98.890 Other specified postprocedural states; Z79.899 Other long term (current) drug therapy; W45.8XXA Other foreign body or object entering through skin, initial encounter
CPT/HCPCS: 99283; 96372; J1885

== ENCOUNTER 2019-01-18 20:29 | Emergency (ER) | payer BC ==
[2019-01-18] MEDS ORDERED: SODIUM CHLORIDE 0.9% 500 ML 500 ML IV STA (21:28)
[2019-01-18 22:16] LABS: Basophils % (A) 0 %; Eosinophils # (A) 0.1 k/uL (0-0.7); Eosinophils % (A) 1 %; HCT 41.8 % (39.0-53.0); HGB 14.2 gm/dL (13.0-17.5); Lymphocytes # (A) 1.8 k/uL (1.0-4.8); Lymphocytes % (A) 22 %; MCH 28.2 pg (25.0-35.0); MCHC 33.9 g/dL (31.0-37.0); MCV 83.2 fL (80.0-100.0); Mean Platelet Volume 7.9; Monocytes # (A) 0.5 k/uL (0-1.0); Monocytes % (A) 6 %; Neutrophils # (A) 5.7 k/uL (1.3-7.7); Neutrophils % (A) 69 %; Platelet Count 157 k/uL (150-450); RBC 5.02 m/uL (4.30-5.90); RDW 13.8 % (11.5-15.5); WBC 8.3 k/uL (3.8-10.6)
[2019-01-18 22:19] LABS: ALT 39 U/L (21-72); AST 25 U/L (17-59); African American GFR (CKD) >90 (>60 ml/min/1.73 sqM); Albumin 4.3 g/dL (3.5-5.0); Alkaline Phosphatase 61 U/L (38-126); Anion Gap 10 mmol/L; Blood Urea Nitrogen 24 mg/dL (9-20); Calcium 9.4 mg/dL (8.4-10.2); Carbon Dioxide 21 mmol/L (22-30); Chloride 111 mmol/L (98-107); Glucose 108 mg/dL (74-99); Magnesium 2.2 mg/dL (1.6-2.3); Potassium 3.9 mmol/L (3.5-5.1); Sodium 142 mmol/L (137-145); Total Bilirubin 0.7 mg/dL (0.2-1.3); Total Protein 6.9 g/dL (6.3-8.2)
[2019-01-18 22:21] LABS: D-Dimer 0.32 mg/L FEU (<0.60); Partial Thromboplastin Time 26.7 sec (22.0-30.0); Prothrombin Time 10.4 sec (9.0-12.0)
[2019-01-18] MEDS ORDERED: KETOROLAC 30 MG/ML 1 ML VIAL IVP STA (22:39)
[2019-01-18 22:53] VITALS: RESP 18
[2019-01-18] MEDS ORDERED: AZITHROMYCIN 500 MG TAB PO STA (22:56)
--- NOTE | 2019-01-18 23:41 | ED ---
General Adult HPI - General Chief complaint: Chest Pain Stated complaint: Chest Pain-sent by [employer] Time Seen by Provider: 01/18/19 21:22 Source: patient, RN notes reviewed, old records reviewed Mode of arrival: ambulatory Limitations: no limitations - History of Present Illness Initial comments: 22-year-old male patient presents to ED chief complaint of chest pain. Patient reports that he has had a sharp chest pain since this morning. Describes his pain as pleuritic in nature. Patient also reports a cough which began today. Patient was previously seen at urgent care. When he presents to emergency department. Denies any other complaints. Systemic: Pt denies fatigue, fever/chills, rash. Pt denies weakness, night sweats, weight loss. Neuro: Pt denies headache, visual disturbances, syncope or pre-syncope. HEENT: Pt denies ocular discharge or irritation, otalgia, rhinorrhea, pharyngitis or notable lymphadenopathy. Cardiopulmonary: Pt denies SOB, heart palpitations, dyspnea on exertion. Abdominal/GI: Pt denies abdominal pain, n/v/d. : Pt denies dysuria, burning w/ urination, frequency/urgency. Denies new onset urinary or bowel incontinence. MSK: Pt denies myalgia, loss of strength or function in extremities. Neuro: Pt denies new onset weakness, paresthesias. - Related Data Home Medications Medication Instructions Recorded Confirmed Melatonin 10 mg PO HS 05/08/18 01/18/19 Sertraline [Zoloft] 100 mg PO HS 05/08/18 01/18/19 Zinc 50 mg PO HS 07/13/18 01/18/19 Gabapentin [Neurontin] 100 mg PO HS 01/18/19 01/18/19 Omeprazole 20 mg PO HS 01/18/19 01/18/19 Previous Rx's Medication Instructions Recorded Azithromycin [Zithromax Z-pack] 0 mg PO DIRECTED #6 tab 01/18/19 Allergies Allergy/AdvReac Type Severity Reaction Status Date / Time No Known Allergies Allergy Verified 01/18/19 21:27 Review of Systems ROS Statement: Those systems with pertinent positive or pertinent negative responses have been documented in the HPI. ROS Other: All systems not noted in ROS Statement are negative. Past Medical History Past Medical History: Syncope Additional Past Medical History / Comment(s): not dx, high BP, recurrent low BP, History of Any Multi-Drug Resistant Organisms: None Reported Past Surgical History: Ear Surgery, Orthopedic Surgery Additional Past Surgical History / Comment(s): Loop recorder placed about a year ago, right foot sx Past Psychological History: No Psychological Hx Reported Smoking Status: Current every day smoker Past Alcohol Use History: Occasional Past Drug Use History: None Reported General Exam - General Exam Comments Initial Comments: Constitutional: NAD, AOX3, Pt has pleasant affect. HEENT: NC/AT, trachea midline, neck supple, no lymphadenopathy. Posterior pharynx non erythematous, without exudates. External ears appear normal, without discharge. Mucous membranes moist. Eyes PERRLA, EOM intact. There is no scleral icterus. No pallor noted. Cardiopulmonary: RRR, no murmurs, rubs or gallops, no JVD noted. Lungs CTAB in anterior and posterior alicea. No peripheral edema. Abdominal exam: Abdomen soft and non-distended. Abdomen non-tender to palpation in all 4 quadrants. Bowel sounds active in LLQ. No hepatosplenomegaly. No ecchymosis Neuro: CN II-XII grossly intact. No nuchal rigidity. No raccon eyes, no hutchinson sign, no hemotympanum. No cervical spinal tenderness. MSK: No posterior calf tenderness bilaterally, homans sign negative bilaterally. Posterior tibialis and radial pulse +2 bilaterally. Sensation intact in upper and lower extremities. Full active ROM in upper and lower extremities, 5/5 stregnth. Limitations: no limitations Course Vital Signs 01/18/19 01/18/19 01/18/19 20:58 22:52 23:50 Temperature 98.8 F 98.9 F Pulse Rate 78 65 57 L Respiratory 20 18 18 Rate Blood Pressure 131/70 118/60 125/60 O2 Sat by Pulse 98 98 99 Oximetry Medical Decision Making - Medical Decision Making 22-year-old male patient presents to the chief complaint of chest pain. Began this morning. Physical exam did not display acute process. Laboratory investigations revealed non-impressive CBC. D-dimer negative. Troponin negative. CMP suggestive of mild dehydration. Patient also 100 mL normal sa line. Chest x-ray is suggestive of pneumonia. Reviewed by Dr. Juan. Pain improved with Toradol. Patient started on azithromycin. Patient discharged with close outpatient follow-up with primary care provider. Patient will have kidney function tests rechecked. Return precautions discussed. Case discussed with Dr. Juan. - Lab Data Result diagrams: 01/18/19 21:44 01/18/19 21:44 Lab Results 01/18/19 01/18/19 01/18/19 Range/Units 21:44 21:44 21:44 WBC 8.3 (3.8-10.6) k/uL RBC 5.02 (4.30-5.90) m/uL Hgb 14.2 (13.0-17.5) gm/dL Hct 41.8 (39.0-53.0) % MCV 83.2 (80.0-100.0) fL MCH 28.2 (25.0-35.0) pg MCHC 33.9 (31.0-37.0) g/dL RDW 13.8 (11.5-15.5) % Plt Count 157 (150-450) k/uL Neutrophils % 69 % Lymphocytes % 22 % Monocytes % 6 % Eosinophils % 1 % Basophils % 0 % Neutrophils # 5.7 (1.3-7.7) k/uL Lymphocytes # 1.8 (1.0-4.8) k/uL Monocytes # 0.5 (0-1.0) k/uL Eosinophils # 0.1 (0-0.7) k/uL Basophils # 0.0 (0-0.2) k/uL PT 10.4 (9.0-12.0) sec INR 1.0 (<1.2) APTT 26.7 (22.0-30.0) sec D-Dimer 0.32 (<0.60) mg/L FEU Sodium 142 (137-145) mmol/L Potassium 3.9 (3.5-5.1) mmol/L Chloride 111 H (98-107) mmol/L Carbon Dioxide 21 L (22-30) mmol/L Anion Gap 10 mmol/L BUN 24 H (9-20) mg/dL Creatinine 1.19 (0.66-1.25) mg/dL Est GFR (CKD-EPI)AfAm >90 (>60 ml/min/1.73 sqM) Est GFR (CKD-EPI)NonAf 86 (>60 ml/min/1.73 sqM) Glucose 108 H (74-99) mg/dL Calcium 9.4 (8.4-10.2) mg/dL Magnesium 2.2 (1.6-2.3) mg/dL Total Bilirubin 0.7 (0.2-1.3) mg/dL AST 25 (17-59) U/L ALT 39 (21-72) U/L Alkaline Phosphatase 61 (38-126) U/L Troponin I (0.000-0.034) ng/mL Total Protein 6.9 (6.3-8.2) g/dL Albumin 4.3 (3.5-5.0) g/dL 01/18/19 Range/Units 21:44 WBC (3.8-10.6) k/uL RBC (4.30-5.90) m/uL Hgb (13.0-17.5) gm/dL Hct (39.0-53.0) % MCV (80.0-100.0) fL MCH (25.0-35.0) pg MCHC (31.0-37.0) g/dL RDW (11.5-15.5) % Plt Count (150-450) k/uL Neutrophils % % Lymphocytes % % Monocytes % % Eosinophils % % Basophils % % Neutrophils # (1.3-7.7) k/uL Lymphocytes # (1.0-4.8) k/uL Monocytes # (0-1.0) k/uL Eosinophils # (0-0.7) k/uL Basophils # (0-0.2) k/uL PT (9.0-12.0) sec INR (<1.2) APTT (22.0-30.0) sec D-Dimer (<0.60) mg/L FEU Sodium (137-145) mmol/L Potassium (3.5-5.1) mmol/L Chloride (98-107) mmol/L Carbon Dioxide (22-30) mmol/L Anion Gap mmol/L BUN (9-20) mg/dL Creatinine (0.66-1.25) mg/dL Est GFR (CKD-EPI)AfAm (>60 ml/min/1.73 sqM) Est GFR (CKD-EPI)NonAf (>60 ml/min/1.73 sqM) Glucose (74-99) mg/dL Calcium (8.4-10.2) mg/dL Magnesium (1.6-2.3) mg/dL Total Bilirubin (0.2-1.3) mg/dL AST (17-59) U/L ALT (21-72) U/L Alkaline Phosphatase (38-126) U/L Troponin I <0.012 (0.000-0.034) ng/mL Total Protein (6.3-8.2) g/dL Albumin (3.5-5.0) g/dL - EKG Data -: EKG Interpreted by Me (and Dr. Juan) EKG Comments: Ventricular rate 65, PFO 138, care is 98, QT/QTC 366/30. Normal sinus rhythm, nonspecific T-wave abnormality. No concern for acute ischemia. Disposition Clinical Impression: Pneumonia Disposition: HOME SELF-CARE Condition: Stable Instructions (If sedation given, give patient instructions): Community Acquired Pneumonia (ED) Additional Instructions: Patient to adhere to previously discussed treatment plan and will take medication(s) as directed. Patient to follow up with PCP in 1-2 days. Patient to return to ED if symptoms do not improve. Take medication as directed. Follow-up with primary care provider tomorrow. Repeat kidney function tests. Return to ER if condition worsens. Prescriptions: Azithromycin [Zithromax Z-pack] 0 mg PO DIRECTED #6 tab Is patient prescribed a controlled substance at d/c from ED?: No Referrals: Gilmer Chappell DO [Primary Care Provider] - 1-2 days
[2019-01-18 23:51] VITALS: BP 125/60; PULSE 57; TEMP 98.9
== END 2019-01-18 23:50 | disposition home or self-care (01) ==
LOC: EC 20:29
DX: J18.9 Pneumonia, unspecified organism (principal); F17.200 Nicotine dependence, unspecified, uncomplicated; Z79.899 Other long term (current) drug therapy
CPT/HCPCS: 36415; 93005; 85379; 80053; 83735; 84484; 85025; 85610; 85730; 99285; 96374; 96361; J1885

== ENCOUNTER → 2019-11-10 | Day surgery (SDC) | payer BC ==
[2019-10-25 09:24] VITALS: BMI 31.4
[~2019-11-10] MED LIST: LACTATED RINGERS 1,000 ML IV ONE; LACTATED RINGERS 1,000 ML IV SCH; ONDANSETRON 4 MG/2 ML VIAL IVP PRN; ONDANSETRON 4 MG/2 ML VIAL ONE
[2019-11-10 10:03] VITALS: RESP 18; TEMP 97.8
--- NOTE | 2019-11-10 11:03 | P.GSHP ---
History of Present Illness H&P Date: 11/10/19 Chief Complaint: GERD This a 24-year-old male presents today for EGD. He's had issues with GERD. Past Medical History Past Medical History: GERD/Reflux Additional Past Medical History / Comment(s): Not dx, high BP, and recurrent low BP. History of Any Multi-Drug Resistant Organisms: None Reported Past Surgical History: Ear Surgery, Orthopedic Surgery Additional Past Surgical History / Comment(s): Loop recorder, right foot surgery. Past Anesthesia/Blood Transfusion Reactions: No Reported Reaction Type of Cardiac Device: Loop Device Placement Date:: Past Psychological History: No Psychological Hx Reported Smoking Status: Current every day smoker Past Alcohol Use History: Occasional Additional Past Alcohol Use History / Comment(s): Smoker X8 years, 4-5 cig/day. Past Drug Use History: None Reported - Past Family History Mother Family Medical History: No Reported History Medications and Allergies Home Medications Medication Instructions Recorded Confirmed Type Melatonin 10 mg PO HS 05/08/18 11/08/19 History Sertraline [Zoloft] 100 mg PO HS 05/08/18 11/08/19 History Omeprazole 20 mg PO HS 01/18/19 11/08/19 History Allergies Allergy/AdvReac Type Severity Reaction Status Date / Time No Known Allergies Allergy Verified 11/08/19 10:35 Surgical - Exam Vital Signs Temp Pulse Resp BP Pulse Ox 97.8 F 69 18 148/78 97 11/10/19 10:02 11/10/19 10:02 11/10/19 10:02 11/10/19 10:02 11/10/19 10:02 - General well developed, well nourished, no distress - Eyes PERRL - ENT normal pinna - Neck no masses - Respiratory normal expansion - Cardiovascular Rhythm: regular - Abdomen Abdomen: soft, non tender Assessment and Plan Assessment: GERD. We'll perform EGD.
--- NOTE | 2019-11-10 11:09 | P.OP ---
Date of Procedure: 11/10/19 Preoperative Diagnosis: GERD Postoperative Diagnosis: Antral gastritis Mild esophagitis Procedure(s) Performed: EGD Anesthesia: MAC Surgeon: Eligio Ponce Pathology: other (Antrum, esophagus) Condition: stable Disposition: PACU Description of Procedure: Patient's placed on the endoscopy table in the lateral position. Seed IV sedation. The gastroscope was oropharynx past esophagus and stomach. Scope was then placed through the pylorus. The first and second portion of duodenum appeared normal. Scope was then brought back the antrum and this appeared mildly inflamed. A biopsies performed. The scope was then retroflexed and the remainder of the stomach appeared normal. There was no significant hiatal hernia. The GE junction was at 41 cm. The distal esophagus appeared mildly inflamed a biopsies performed. The proximal esophagus appeared normal. Scope was withdrawn from patient.
[2019-11-10 11:30] VITALS: BP 137/64; PULSE 56
--- NOTE | 2019-11-10 19:18 | NM ---
EXAMINATION TYPE: NM hepatobiliary w CCK DATE OF EXAM: 11/10/2019 COMPARISON: NONE HISTORY: TECHNIQUE: After the intravenous administration of 4.9 mCi Tc 99m Mebrofenin hepatobiliary scintigrap hy is performed. Immediate images post injection. FINDINGS: There is satisfactory initial accumulation of tracer by the liver. The gallbladder is visualized wit hin 15 minutes. The small bowel activity is noted within 15 minutes. At one hour CCK was administer ed, patient was injected with 2.8 mcg of Kinevac, and gallbladder ejection fraction is calculated at 26 %, which is below the lower limit of normal of 35%.. There is no focal liver defect. IMPRESSION: No focal liver defect. No evidence of cystic duct or common bile duct obstruction. There is abnormal hypokinetic gallbladder ejection fraction of 26% with the CCK stimulation.
== END | disposition home or self-care (01) ==
LOC: ORWHC2ENDO 09:47
PROVIDERS: ATTEND Surgery
DX: K29.50 Unspecified chronic gastritis without bleeding (principal); K21.0 Gastro-esophageal reflux disease with esophagitis; F17.210 Nicotine dependence, cigarettes, uncomplicated; Z79.899 Other long term (current) drug therapy; Z98.890 Other specified postprocedural states
CPT/HCPCS: 88305; 78227; 43239; A9537; J2405; J2805

== ENCOUNTER 2019-12-21 07:33 | Day surgery (SDC) | payer BC ==
[2019-12-20 08:18] VITALS: BMI 31.4
[~2019-12-21 07:33] MED LIST changes: +ACETAMINOPHEN TAB 500 MG TAB PO ONE; +DEXAMETHASONE SOD PHOSPHATE 10 MG/ML 1 ML VIAL IV ONE; +HEPARIN SODIUM,PORCINE 5,000 UNIT/ML 1 ML VIAL SQ ONE; -LACTATED RINGERS 1,000 ML IV ONE; +MIDAZOLAM 2 MG/2 ML VIAL IV PRN; +ONDANSETRON 4 MG/2 ML VIAL IVP ONE; -ONDANSETRON 4 MG/2 ML VIAL ONE; +SCOPOLAMINE 1.5MG/72HR PATCH TRANSDERM ONE; +ceFAZolin 3 GM in SODIUM CHLORIDE 0.9% 100 ML IVPB ONE; +fentaNYL (PF) 50 MCG/ML 2 ML AMP IV PRN; +fentaNYL (PF) 50 MCG/ML 2 ML AMP IVP PRN
[2019-12-21 07:55] VITALS: RESP 16
--- NOTE | 2019-12-21 08:31 | P.GSHP ---
History of Present Illness H&P Date: 12/21/19 Chief Complaint: Right upper quadrant pain This a 24-year-old male who presents today for laparoscopic cholecystectomy. Patient's echo was run quadrant pain. His recent HIDA scan shows evidence of biliary dyskinesia. Past Medical History Past Medical History: GERD/Reflux Additional Past Medical History / Comment(s): Recurrent low BP. Hx. of passing out @ times.(vasovagal) Sees shipping manager at [facility] for this., hiatal hernia, History of Any Multi-Drug Resistant Organisms: None Reported Past Surgical History: Ear Surgery, Orthopedic Surgery Additional Past Surgical History / Comment(s): Loop recorder, right foot surgery x 2. EGD Past Anesthesia/Blood Transfusion Reactions: No Reported Reaction Type of Cardiac Device: Loop Device Placement Date:: Smoking Status: Current every day smoker - Past Family History Mother Family Medical History: No Reported History Medications and Allergies Home Medications Medication Instructions Recorded Confirmed Type Melatonin 10 mg PO HS PRN 05/08/18 12/21/19 History Sertraline [Zoloft] 100 mg PO HS 05/08/18 12/21/19 History Pantoprazole(Dose Unknown) 1 tab PO HS 12/20/19 12/21/19 History Allergies Allergy/AdvReac Type Severity Reaction Status Date / Time No Known Allergies Allergy Verified 12/21/19 07:49 Surgical - Exam Vital Signs Temp Pulse Resp BP Pulse Ox 97.7 F 65 16 142/64 98 12/21/19 07:54 12/21/19 07:54 12/21/19 07:54 12/21/19 07:54 12/21/19 07:54 - General well developed, well nourished, no distress - Eyes PERRL - ENT normal pinna - Neck no masses - Respiratory normal expansion - Cardiovascular Rhythm: regular - Abdomen Abdomen: soft, non tender Assessment and Plan Assessment: Right upper quadrant pain Biliary dyskinesia We'll perform laparoscopic cholecystectomy
[2019-12-21] MEDS ORDERED: GLYCOPYRROLATE 0.2 MG/ML 2 ML VIAL ONE (08:55)
[2019-12-21] MEDS ORDERED: PROPOFOL 10 MG/ML 20 ML VIAL IV ONE (08:55)
[2019-12-21] MEDS ORDERED: LIDOCAINE 1% INJ 10MG/ML (20 ML MDV) ONE (08:55)
[2019-12-21] MEDS ORDERED: NEOSTIGMINE 1 MG/ML 10 ML VIAL ONE (08:55)
[2019-12-21] MEDS ORDERED: MIDAZOLAM 2 MG/2 ML VIAL ONE (08:55)
[2019-12-21] MEDS ORDERED: fentaNYL (PF) 50 MCG/ML 2 ML AMP ONE (08:55)
[2019-12-21] MEDS ORDERED: HYDROmorphone (PF) 1 MG/ML ONE (08:55)
[2019-12-21] MEDS ORDERED: SUCCINYLCHOLINE CHLORIDE VIAL 200 MG/10 ML VIAL IV ONE (08:55)
[2019-12-21] MEDS ORDERED: ROCURONIUM BROMIDE 10 MG/ML 5 ML VIAL IV ONE (08:55)
[2019-12-21] MEDS ORDERED: BUPIVACAINE (PF) 0.5% 30 ML VIAL SQ ONE ×2 (08:57→09:12)
--- NOTE | 2019-12-21 09:36 | P.OP ---
Date of Procedure: 12/21/19 Preoperative Diagnosis: Cholecystitis Postoperative Diagnosis: Cholecystitis Procedure(s) Performed: Laparoscopic cholecystectomy Anesthesia: EZIO Surgeon: Eligio Ponce Estimated Blood Loss (ml): 5 Pathology: other (Gallbladder) Condition: stable Disposition: PACU Description of Procedure: The patient was placed on the operating table. The patient received a general endotracheal tube anesthesia. The patients abdomen was prepped and draped in the usual sterile fashion. Through an infraumbilical stab incision, the fascia of the anterior abdominal wall was grasped with a pair of Kochers and then the Veress needle was placed in the peritoneal cavity. Position of the Veress needle was confirmed with positive drop test. The abdomen was then insufflated. After adequate insufflation, the 10 mm trocar was placed in the peritoneal cavity. Following this the laparoscope was placed in the peritoneal cavity. The patient was placed in the head-up, right side up position and then a 5 mm trocar was placed in the right lateral and right subcostal position under direct visualization. A 8 mm trocar was placed in the epigastric position. The gallbladder was grasped in the fundus and infundibulum. Traction on the gallbladder was placed in the lateral and the cephalad positions. The triangle of Calot was visualized.. The cystic duct was bluntly dissected until the union of the cystic duct and common bile duct was seen. A critical view of safety was achieved. The cystic duct was then divided and sealed with the Harmonic scissors. A PDS Endoloop was then placed throughout the cystic duct stump. The cystic artery divided and sealed with the Harmonic scissors. The gallbladder was then removed from the liver bed using Harmonic scissors. The gallbladder was then extracted through the epigastric port site. Operative field was checked for any bleeding spots and Harmonic scissors was used to coagulate the liver bed. The abdomen was irrigated. The trocars were removed. The skin was closed using interrupted 3-0 Vicryl suture. Dermabond dressing were applied. The patient tolerated the procedure well.
[2019-12-21] MEDS ORDERED: LACTATED RINGERS 1,000 ML IV ONE ×2 (09:45)
[2019-12-21 09:47] VITALS: TEMP 97
[2019-12-21] MEDS: HYDROmorphone 0.5 MG/0.5 ML SYRINGE IVP PRN ×2 (10:15→10:20)
[2019-12-21] MEDS ORDERED: HYDROcodone/APAP 5-325MG 1 EACH TAB ONE (11:03)
[2019-12-21] MEDS ORDERED: HYDROcodone/APAP 5-325MG 1 EACH TAB PO ONE (11:08)
[2019-12-21 11:42] VITALS: BP 134/70; PULSE 59
== END 2019-12-21 12:52 | disposition home or self-care (01) ==
LOC: OR 07:33
PROVIDERS: ATTEND Surgery
DX: K81.1 Chronic cholecystitis (principal); K82.8 Other specified diseases of gallbladder; F32.9 Major depressive disorder, single episode, unspecified; K21.9 Gastro-esophageal reflux disease without esophagitis; F17.200 Nicotine dependence, unspecified, uncomplicated; Z79.899 Other long term (current) drug therapy; Z98.890 Other specified postprocedural states
CPT/HCPCS: 88304; 47562; J2250; J0330; J1644; J1100; J2710; J0690; J2405; J2001; J3010; J1170 ×2; J2704

== ENCOUNTER → 2020-02-16 | Outpatient (CLI) | payer BC ==
--- NOTE | 2020-02-16 12:16 | FL ---
Barium swallow HISTORY: Gastroesophageal reflux disease and esophagitis, K 21.0 Patient was given high density barium to drink. Swallowing mechanism is normal. There is no extrinsic or intrinsic esophageal lesion. No gastroesophageal reflux was identified. Small sliding hiatal ingrid ia is questioned. 1 minute 13 seconds fluoroscopy time, 13 intraoperative images. IMPRESSION: Small sliding hiatal hernia may be present
== END | disposition home or self-care (01) ==
LOC: RADUSWWP 07:56
PROVIDERS: ATTEND Surgery
DX: K21.9 Gastro-esophageal reflux disease without esophagitis (principal)
CPT/HCPCS: 74220

== ENCOUNTER → 2020-02-22 | Outpatient (CLI) | payer BC ==
[2020-02-22 12:33] LABS: Basophils % (A) 0 %; Eosinophils # (A) 0.1 k/uL (0-0.7); Eosinophils % (A) 2 %; HCT 42.5 % (39.0-53.0); HGB 14.6 gm/dL (13.0-17.5); Lymphocytes # (A) 1.4 k/uL (1.0-4.8); Lymphocytes % (A) 27 %; MCH 28.4 pg (25.0-35.0); MCHC 34.2 g/dL (31.0-37.0); Mean Platelet Volume 8.7; Monocytes # (A) 0.3 k/uL (0-1.0); Monocytes % (A) 7 %; Neutrophils # (A) 3.1 k/uL (1.3-7.7); Neutrophils % (A) 62 %; Platelet Count 146 k/uL (150-450); RBC 5.13 m/uL (4.30-5.90); RDW 13.9 % (11.5-15.5); WBC 5.1 k/uL (3.8-10.6)
== END | disposition home or self-care (01) ==
LOC: LABPAT 11:41
PROVIDERS: ATTEND Surgery
DX: Z01.818 Encounter for other preprocedural examination (principal); K21.00 Gastro-esophageal reflux disease with esophagitis, without bleeding; D64.9 Anemia, unspecified; F17.200 Nicotine dependence, unspecified, uncomplicated
CPT/HCPCS: 85025

== ENCOUNTER 2020-02-29 10:56 | Inpatient (IN) | payer BC ==
[~2020-02-29 10:56] MED LIST changes: -ACETAMINOPHEN TAB 500 MG TAB PO ONE; +ACETAMINOPHEN TAB 500 MG TAB PO PRN; -DEXAMETHASONE SOD PHOSPHATE 10 MG/ML 1 ML VIAL IV ONE; -HEPARIN SODIUM,PORCINE 5,000 UNIT/ML 1 ML VIAL SQ ONE; +HEPARIN SODIUM,PORCINE 5,000 UNIT/ML 1 ML VIAL SQ PRN; -LACTATED RINGERS 1,000 ML IV SCH; -MIDAZOLAM 2 MG/2 ML VIAL IV PRN; -ONDANSETRON 4 MG/2 ML VIAL IVP ONE; -ONDANSETRON 4 MG/2 ML VIAL IVP PRN; -SCOPOLAMINE 1.5MG/72HR PATCH TRANSDERM ONE; -ceFAZolin 3 GM in SODIUM CHLORIDE 0.9% 100 ML IVPB ONE; +ceFAZolin 3 GM in SODIUM CHLORIDE 0.9% 100 ML IVPB PRN; -fentaNYL (PF) 50 MCG/ML 2 ML AMP IV PRN; -fentaNYL (PF) 50 MCG/ML 2 ML AMP IVP PRN
[2020-02-29] MEDS ORDERED: ONDANSETRON 4 MG/2 ML VIAL ONE (12:25)
[2020-02-29] MEDS ORDERED: LACTATED RINGERS 1,000 ML IV ONE (12:36)
[2020-02-29] MEDS ORDERED: LIDOCAINE 1% (10MG/ML) FOR IV START INTRADERMA ONE (12:36)
[2020-02-29] MEDS ORDERED: DEXAMETHASONE SOD PHOSPHATE 4 MG/ML 1 ML VIAL IV ONE (12:38)
--- NOTE | 2020-02-29 13:16 | P.GSHP ---
History of Present Illness H&P Date: 02/29/20 Chief Complaint: GERD This 24-year-old male is a history of GERD. Patient rents today for laparoscopic Aspen plication.The patient has had long-standing problems with reflux esophagitis. The patient underwent recent EGD is found have evidence of esophagitis. Patient has been well informed on the procedure of laparoscopic Aspen fundoplication. The patient is aware the risk of the conversion to the open procedure, risk of injury to the stomach, liver and spleen. The patient is also a risk of recurrent GERD and dysphagia symptoms. The patient understands there is a postoperative diet of full liquids for 2 weeks after surgery. 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 Hx. of passing out 2 yrs ago., hiatal hernia, hx migraines, hx low platelets, History of Any Multi-Drug Resistant Organisms: None Reported Past Surgical History: Cholecystectomy, Ear Surgery Additional Past Surgical History / Comment(s): Loop recorder 2018, right foot surgery x 2 after injury. EGD, bone marrow biopsy Past Anesthesia/Blood Transfusion Reactions: No Reported Reaction Type of Cardiac Device: Loop Device Placement Date:: Smoking Status: Current every day smoker - Past Family History Mother Family Medical History: No Reported History Medications and Allergies Home Medications Medication Instructions Recorded Confirmed Type Sertraline [Zoloft] 100 mg PO HS 05/08/18 02/24/20 History Melatonin 5 mg PO HS PRN 02/24/20 02/24/20 History Pantoprazole [Protonix] 40 mg PO HS 02/24/20 02/24/20 History Allergies Allergy/AdvReac Type Severity Reaction Status Date / Time No Known Allergies Allergy Verified 02/29/20 12:32 Surgical - Exam Vital Signs Temp Resp BP Pulse Ox 98.1 F 16 135/65 98 02/29/20 12:33 02/29/20 12:33 02/29/20 12:33 02/29/20 12:33 - General well developed, well nourished, no distress - Eyes PERRL - ENT normal pinna - Neck no masses - Respiratory normal expansion - Cardiovascular Rhythm: regular - Abdomen Abdomen: soft, non tender Assessment and Plan Assessment: GERD. We'll perform laparoscopic Aspen fundal plication.
[2020-02-29] MEDS ORDERED: fentaNYL (PF) 50 MCG/ML 2 ML AMP ONE (13:32)
[2020-02-29] MEDS ORDERED: ROCURONIUM 10 MG/ML (10 ML VIAL) IV ONE (13:32)
[2020-02-29] MEDS ORDERED: MIDAZOLAM 2 MG/2 ML VIAL ONE (13:32)
[2020-02-29] MEDS ORDERED: HYDROmorphone (PF) 1 MG/ML ONE (13:32)
[2020-02-29] MEDS ORDERED: LIDOCAINE 1% INJ 10MG/ML (20 ML MDV) ONE (13:32)
[2020-02-29] MEDS ORDERED: GLYCOPYRROLATE 0.2 MG/ML 2 ML VIAL ONE (13:32)
[2020-02-29] MEDS ORDERED: NEOSTIGMINE 1 MG/ML 10 ML VIAL ONE (13:32)
[2020-02-29] MEDS ORDERED: SUCCINYLCHOLINE CHLORIDE 100 MG/5 ML SYR IV ONE (13:32)
[2020-02-29] MEDS ORDERED: PROPOFOL 10 MG/ML 20 ML VIAL IV ONE (13:32)
[2020-02-29] MEDS ORDERED: BUPIVACAINE (PF) 0.25% 30 ML VIAL SQ ONE (14:04)
--- NOTE | 2020-02-29 14:41 | P.OP ---
Date of Procedure: 02/29/20 Preoperative Diagnosis: GERD Postoperative Diagnosis: GERD Procedure(s) Performed: Laparoscopic Aspen fundal plication Anesthesia: EZIO Surgeon: Eligio Ponce Estimated Blood Loss (ml): 5 Pathology: none sent Condition: stable Disposition: PACU Description of Procedure: HarThe patient was placed on the operating table in the supine position. The patient received general anesthesia. And was placed in dorsal lithotomy position. The patient was prepped and draped in the usual sterile fashion. The skin incision sites were anesthetized with 1% local Xylocaine. The skin was incised in the left periumbilical area and then using a blade less 5 mm trocar u nder direct visualization panel cavity was entered. After adequate insufflation the laparoscope was then placed into the peritoneal cavity. Next a 5 mm trochars placed in the right epigastric position. Another 5 millimeter trocar the right lateral position. Another 5 millimeter trocar in the left lateral position a 5 mm trocar is placed in the left epigastric position. And then the initial 5 mm trocar was exchanged for a 10 mm trocar. The left lateral lobe liver was retracted. The hernia was seen. The crural defect was then dissected using the Harmonic scissors device. A 360 crural dissection was performed the esophagus stomach was reduced back into the peritoneal Cavity. The crural defect was then closed using 2-0 Ethibond suture. Next the fundus of the stomach was mobilized using the Endeavor scissors device. and then a 58-Uzbek bougie dilator was placed oropharynx passed into the esophagus and stomach the fundal plication wrap was then performed by grasping the fundus posteriorly and bringing it around the esophagus and stomach fundoplication was then performed using 2-0 Ethibond suture. Care was taken that the fundal location rested over top of the intra-abdominal esophagus. There was no injury seen to the stomach or esophagus. The dilator was then withdrawn. The abdomen was irrigated there is no bleeding seen. The trochars were then withdrawn and then skin incision sites were closed using 3-0 Monocryl suture Steri-Strips are applied. Patient thought procedure well and sent to recovery room in stable condition.
[2020-02-29] MEDS ORDERED: HYDROmorphone 0.5 MG/0.5 ML SYRINGE IVP ONE ×2 (15:05→15:10)
[2020-02-29] MEDS: HYDROmorphone 1 MG/ML 1 ML SYRINGE IVP PRN ×2 (17:42→23:03)
[2020-02-29] MEDS: METOCLOPRAMIDE 5 MG/ML 2 ML VIAL IVP SCH ×2 (17:42→23:03)
[2020-03-01] MEDS: D5-0.45% NACL WITH KCL 20MEQ/L 1,000 ML IV SCH ×2 (03:53→06:22)
[2020-03-01] MEDS: METOCLOPRAMIDE 5 MG/ML 2 ML VIAL IVP SCH ×2 (06:20→12:33)
[2020-03-01] MEDS: HYDROmorphone 1 MG/ML 1 ML SYRINGE IVP PRN ×2 (06:21→10:34)
[2020-03-01 07:57] VITALS: BP 128/71; PULSE 66; RESP 18; TEMP 98.1
[2020-03-01] MEDS ORDERED: ENOXAPARIN 40 MG/0.4 ML SYRINGE SQ SCH (09:00)
[2020-03-01 11:53] VITALS: BMI 33.4
--- NOTE | 2020-03-01 12:38 | FL ---
SINGLE CONTRAST ESOPHAGRAM: CLINICAL HISTORY: 24-year-old male rule out leak/obstruction status post Aspen fundoplication TECHNIQUE: Single contrast exam performed with 50 ml Isovue 300 contrast. Total images: There was a machine error. Images taken during the exam were lost. Total fluoroscopy time: 1 minute 25 seconds. FINDINGS: The patient swallowed oral contrast without difficulty or delay. Esophageal peristalsis and motility are within normal limits. There is mild relative obstruction at the GE junction at this site of pat ient's Aspen fundoplication. Delay in passage of contrast into the stomach with intermittent episode s of intraesophageal reflux. Repeat dry swallows eventually causes the contrast to pass into the stom ach. There is no evidence of contrast extravasation to suggest leak. Trace post surgical free air bel ow both hemidiaphragms. IMPRESSION: 1. Mild relative obstruction at the GE junction status post Aspen fundoplication. Probably on the ba sis of postoperative edema. Clinical follow-up recommended. 2. No evidence for leak. 3. Trace postsurgical free air on both sides.
--- NOTE | 2020-03-01 14:17 | P.DS ---
Providers Date of admission: 02/29/20 10:56 Expected date of discharge: 03/01/20 Attending physician: Eligio Ponce Primary care physician: Stated None Hospital Course: Discharge diagnosis 1. GERD status post laparoscopic Aspen fundoplication Hospital course This is a 24-year-old male with a known history of GERD. He has had long- standing problems with reflux esophagitis. He is status post appendectomy scopic Aspen fundoplication. Esophagram shows mild relative obstruction at the GE junction status post Aspen fundoplication. Probably on the basis of postoperative edema. No evidence of leak. Trace postsurgical free air on both sets. Patient is afebrile. He is tolerating liquid diet. Denies any nausea or vomiting. Patient is stable for discharge. Physician Outside Machinist Apprentice note has been reviewed by physician. Signing provider agrees with the documented findings, assessment, and plan of care. Patient Condition at Discharge: Stable Plan - Discharge Summary Discharge Rx Participant: Yes New Discharge Prescriptions: New Hydrocodone/Acetaminophen [[place] 5-325] 1 tab PO Q6HR PRN 3 Days #12 tab PRN Reason: Pain Continue Sertraline [Zoloft] 100 mg PO HS Pantoprazole [Protonix] 40 mg PO HS Melatonin 5 mg PO HS PRN PRN Reason: sleep Discharge Medication List Sertraline [Zoloft] 100 mg PO HS 05/08/18 [History] Melatonin 5 mg PO HS PRN 02/24/20 [History] Pantoprazole [Protonix] 40 mg PO HS 02/24/20 [History] Hydrocodone/Acetaminophen [[place] 5-325] 1 tab PO Q6HR PRN 3 Days #12 tab 03/01/20 [Rx] Follow up Appointment(s)/Referral(s): Eligio Ponce MD [STAFF PHYSICIAN] - 1 Week Patient Instructions/Handouts: *Surgery [facility] - ([facility]) Lap Aspen Fundiplication Post-Op Instructions Activity/Diet/Wound Care/Special Instructions: No driving while taking [place] No lifting over 10 pounds You may shower. No soaking or tub baths for 2 weeks Very light activity until you are reevaluated at your follow up appointment with your surgeon No straws or carbonated beverages Discharge Disposition: HOME SELF-CARE
== END 2020-03-01 15:28 | disposition home or self-care (01) | DRG 328 ==
LOC: 2ORMAIN 10:56 → 4SSUR 15:04
PROVIDERS: ADMIT Surgery; ATTEND Surgery
PROC: 0DV44ZZ Restriction of Esophagogastric Junction, Percutaneous Endoscopic Approach (ICD-10-PCS; 2020-02-29)
PROC: 0BQT4ZZ Repair Diaphragm, Percutaneous Endoscopic Approach (ICD-10-PCS; principal; 2020-02-29 12:10)
DX: K21.00 Gastro-esophageal reflux disease with esophagitis, without bleeding (principal); G43.909 Migraine, unspecified, not intractable, without status migrainosus; K44.9 Diaphragmatic hernia without obstruction or gangrene; F17.210 Nicotine dependence, cigarettes, uncomplicated; Z79.899 Other long term (current) drug therapy; Z98.890 Other specified postprocedural states; Z90.49 Acquired absence of other specified parts of digestive tract
CPT/HCPCS: 74210

== ENCOUNTER 2020-06-14 21:47 | Emergency (ER) | payer BC ==
[2020-06-14 21:53] VITALS: RESP 18
[2020-06-14] MEDS ORDERED: SODIUM CHLORIDE 0.9% 1,000 ML IV STA (22:18)
[2020-06-14 22:34] LABS: Basophils % (A) 1 %; Eosinophils # (A) 0.1 k/uL (0-0.7); Eosinophils % (A) 2 %; HGB 14.6 gm/dL (13.0-17.5); Lymphocytes # (A) 1.8 k/uL (1.0-4.8); Lymphocytes % (A) 32 %; MCH 28.7 pg (25.0-35.0); MCHC 34.8 g/dL (31.0-37.0); MCV 82.4 fL (80.0-100.0); Mean Platelet Volume 9.1; Monocytes # (A) 0.4 k/uL (0-1.0); Monocytes % (A) 7 %; Neutrophils # (A) 3.3 k/uL (1.3-7.7); Neutrophils % (A) 57 %; Platelet Count 138 k/uL (150-450); RBC 5.09 m/uL (4.30-5.90); RDW 13.5 % (11.5-15.5); WBC 5.8 k/uL (3.8-10.6)
[2020-06-14 22:37] LABS: Appearance,Urine Turbid (Clear); Bilirubin,Urine Negative (Negative); Blood,Urine Negative (Negative); Budding Yeast,Urine Many /hpf; Color,Urine Yellow; Glucose,Urine (UA) Negative (Negative); Ketones,Urine Negative (Negative); Leukocyte Esterase,Urine Negative (Negative); Mucus,Urine Rare /hpf; Nitrite,Urine Negative (Negative); PH, Urine 7.5 (5.0-8.0); Protein,Urine Trace (Negative); RBC,Urine 2 /hpf (0-5); Specific Gravity,Urine 1.024 (1.001-1.035); WBC,Urine 13 /hpf (0-5)
[2020-06-14 22:44] LABS: ALT 23 U/L (4-49); AST 27 U/L (17-59); African American GFR (CKD) >90 (>60 ml/min/1.73 sqM); Albumin 4.5 g/dL (3.5-5.0); Alkaline Phosphatase 70 U/L (38-126); Anion Gap 12 mmol/L; Blood Urea Nitrogen 24 mg/dL (9-20); Calcium 9.5 mg/dL (8.4-10.2); Carbon Dioxide 22 mmol/L (22-30); Chloride 107 mmol/L (98-107); Glucose 118 mg/dL (74-99); Lipase 81 U/L (23-300); Non-African American GFR(CKD) >90 (>60 ml/min/1.73 sqM); Potassium 3.9 mmol/L (3.5-5.1); Sodium 141 mmol/L (137-145); Total Bilirubin 0.7 mg/dL (0.2-1.3); Total Protein 6.8 g/dL (6.3-8.2)
--- NOTE | 2020-06-14 22:56 | ED ---
Abdominal Pain HPI - General Chief Complaint: Abdominal Pain Stated Complaint: Stomach pain Time Seen by Provider: 06/14/20 22:04 Source: patient Mode of arrival: ambulatory Limitations: no limitations - History of Present Illness Initial Comments: 24-year-old male presents to emergency Department with a chief complaint of spleen pain. Patient reports history of enlarged spleen that was further investigated by multiple specialists with no definitive findings. Patient reports this was several years ago and he has not had any problems since. Patient reports having pain for the past week located in the left upper quadrant region which she believes it is an alert spleen. Patient does have history of GERD and hiatal hernia which was repaired surgically and he has not had any problems since. States that does not feel like a typical GERD symptoms. Patient reports a different type pain and is currently 4/10 but earlier today was higher on severity. Patient reports it feels like a pulsating/burning sensation that seems to be exacerbated with positional movements. States the pain is not postprandial. Denies nausea vomiting diarrhea. Denies chest pain shortness of breath or back pain. Denies any infectious or obstructive urinary symptoms. Denies testicular swelling or penile discharge. Denies any sore throat. States he has history of mono. - Related Data Home Medications Medication Instructions Recorded Confirmed Melatonin 3 mg PO HS 06/14/20 06/14/20 Previous Rx's Medication Instructions Recorded Ondansetron Odt [Zofran Odt] 4 mg PO Q8HR PRN #10 tab 06/15/20 Allergies Allergy/AdvReac Type Severity Reaction Status Date / Time No Known Allergies Allergy Verified 06/14/20 23:42 Review of Systems ROS Statement: Those systems with pertinent positive or pertinent negative responses have been documented in the HPI. ROS Other: All systems not noted in ROS Statement are negative. Past Medical History Past Medical History: GERD/Reflux Additional Past Medical History / Comment(s): monitoring BP- was high last visit to [facility](no Rx). Hx. of passing out 2 yrs ago., hiatal hernia, hx migraines, hx low platelets, History of Any Multi-Drug Resistant Organisms: None Reported Past Surgical History: Cholecystectomy, Ear Surgery, Hernia Repair Additional Past Surgical History / Comment(s): Loop recorder 2018, right foot surgery x 2 after injury. EGD, bone marrow biopsy, bilat ear tubes 2019 Past Anesthesia/Blood Transfusion Reactions: No Reported Reaction Type of Cardiac Device: Loop Device Placement Date:: Past Psychological History: No Psychological Hx Reported Smoking Status: Current every day smoker Past Alcohol Use History: Rare Past Drug Use History: None Reported - Past Family History Mother Family Medical History: No Reported History General Exam Limitations: no limitations General appearance: alert, in no apparent distress Head exam: Present: atraumatic, normocephalic, normal inspection Eye exam: Present: normal appearance, PERRL, EOMI Pupils: Present: normal accommodation ENT exam: Present: normal exam, normal oropharynx, mucous membranes moist, TM's normal bilaterally, normal external ear exam Neck exam: Present: normal inspection, full ROM. Absent: tenderness Respiratory exam: Present: normal lung sounds bilaterally. Absent: respiratory distress Cardiovascular Exam: Present: regular rate, normal rhythm, normal heart sounds GI/Abdominal exam: Present: soft, tenderness (Left lower quadrant abdominal pain). Absent: distended, guarding, rebound, rigid Extremities exam: Present: normal inspection, full ROM, normal capillary refill. Absent: tenderness, pedal edema, joint swelling Back exam: Present: normal inspection, full ROM. Absent: tenderness, CVA tenderness (R), CVA tenderness (L) Neurological exam: Present: alert, oriented X3 Psychiatric exam: Present: normal affect, normal mood Skin exam: Present: warm, dry, intact, normal color Course Vital Signs 06/14/20 06/15/20 21:49 00:40 Temperature 98.1 F 98.0 F Pulse Rate 79 55 L Respiratory 18 18 Rate Blood Pressure 123/75 125/64 O2 Sat by Pulse 99 100 Oximetry Medical Decision Making - Medical Decision Making 24-year-old male presents to the emergency department with a chief complaint of enlarged spleen. On physical examination, left upper quadrant abdominal tenderness. No other associated signs and symptoms. Negative heterophile. CBC unremarkable. CMP reveals mild elevation and BUN of 24. He was given 1 L IV bolus fluids. UA shows 13 white blood cells with some bacteria. Urine culture pending. CT abdomen and pelvis reveals possible ileus or enteritis in the proximal small intestine. This could potentially be causing the patient's sympt oms. Will be discharged with Zofran. Advised to follow with the primary care doctor. Return parameters discussed the patient was understanding and agreeable. Case discussed with - Lab Data Result diagrams: 06/14/20 22:24 06/14/20 22:24 Lab Results 06/14/20 06/14/20 06/14/20 Range/Units 22:24 22:24 22:24 WBC 5.8 (3.8-10.6) k/uL RBC 5.09 (4.30-5.90) m/uL Hgb 14.6 (13.0-17.5) gm/dL Hct 42.0 (39.0-53.0) % MCV 82.4 (80.0-100.0) fL MCH 28.7 (25.0-35.0) pg MCHC 34.8 (31.0-37.0) g/dL RDW 13.5 (11.5-15.5) % Plt Count 138 L (150-450) k/uL MPV 9.1 Neutrophils % 57 % Lymphocytes % 32 % Monocytes % 7 % Eosinophils % 2 % Basophils % 1 % Neutrophils # 3.3 (1.3-7.7) k/uL Lymphocytes # 1.8 (1.0-4.8) k/uL Monocytes # 0.4 (0-1.0) k/uL Eosinophils # 0.1 (0-0.7) k/uL Basophils # 0.0 (0-0.2) k/uL Sodium 141 (137-145) mmol/L Potassium 3.9 (3.5-5.1) mmol/L Chloride 107 (98-107) mmol/L Carbon Dioxide 22 (22-30) mmol/L Anion Gap 12 mmol/L BUN 24 H (9-20) mg/dL Creatinine 0.81 (0.66-1.25) mg/dL Est GFR (CKD-EPI)AfAm >90 (>60 ml/min/1.73 sqM) Est GFR (CKD-EPI)NonAf >90 (>60 ml/min/1.73 sqM) Glucose 118 H (74-99) mg/dL Calcium 9.5 (8.4-10.2) mg/dL Total Bilirubin 0.7 (0.2-1.3) mg/dL AST 27 (17-59) U/L ALT 23 (4-49) U/L Alkaline Phosphatase 70 (38-126) U/L Total Protein 6.8 (6.3-8.2) g/dL Albumin 4.5 (3.5-5.0) g/dL Lipase 81 (23-300) U/L Urine Color Yellow Urine Appearance Turbid (Clear) Urine pH 7.5 (5.0-8.0) Ur Specific [place] 1.024 (1.001-1.035) Urine Protein Trace H (Negative) Urine Glucose (UA) Negative (Negative) Urine Ketones Negative (Negative) Urine Blood Negative (Negative) Urine Nitrite Negative (Negative) Urine Bilirubin Negative (Negative) Urine Urobilinogen 2.0 (<2.0) mg/dL Ur Leukocyte Esterase Negative (Negative) Urine RBC 2 (0-5) /hpf Urine WBC 13 H (0-5) /hpf Urine WBC Clumps Many H (None) /hpf Urine Mucus Rare H (None) /hpf Urine Yeast (Budding) Many H (None) /hpf Heterophile Antibody (Negative) 06/14/20 Range/Units 22:24 WBC (3.8-10.6) k/uL RBC (4.30-5.90) m/uL Hgb (13.0-17.5) gm/dL Hct (39.0-53.0) % MCV (80.0-100.0) fL MCH (25.0-35.0) pg MCHC (31.0-37.0) g/dL RDW (11.5-15.5) % Plt Count (150-450) k/uL MPV Neutrophils % % Lymphocytes % % Monocytes % % Eosinophils % % Basophils % % Neutrophils # (1.3-7.7) k/uL Lymphocytes # (1.0-4.8) k/uL Monocytes # (0-1.0) k/uL Eosinophils # (0-0.7) k/uL Basophils # (0-0.2) k/uL Sodium (137-145) mmol/L Potassium (3.5-5.1) mmol/L Chloride (98-107) mmol/L Carbon Dioxide (22-30) mmol/L Anion Gap mmol/L BUN (9-20) mg/dL Creatinine (0.66-1.25) mg/dL Est GFR (CKD-EPI)AfAm (>60 ml/min/1.73 sqM) Est GFR (CKD-EPI)NonAf (>60 ml/min/1.73 sqM) Glucose (74-99) mg/dL Calcium (8.4-10.2) mg/dL Total Bilirubin (0.2-1.3) mg/dL AST (17-59) U/L ALT (4-49) U/L Alkaline Phosphatase (38-126) U/L Total Protein (6.3-8.2) g/dL Albumin (3.5-5.0) g/dL Lipase (23-300) U/L Urine Color Urine Appearance (Clear) Urine pH (5.0-8.0) Ur Specific [place] (1.001-1.035) Urine Protein (Negative) Urine Glucose (UA) (Negative) Urine Ketones (Negative) Urine Blood (Negative) Urine Nitrite (Negative) Urine Bilirubin (Negative) Urine Urobilinogen (<2.0) mg/dL Ur Leukocyte Esterase (Negative) Urine RBC (0-5) /hpf Urine WBC (0-5) /hpf Urine WBC Clumps (None) /hpf Urine Mucus (None) /hpf Urine Yeast (Budding) (None) /hpf Heterophile Antibody Negative (Negative) Disposition Clinical Impression: Abdominal pain Disposition: HOME SELF-CARE Condition: Stable Instructions (If sedation given, give patient instructions): Abdominal Pain (ED) Additional Instructions: Please return to the Emergency Department if symptoms worsen or any other concerns. Prescriptions: Ondansetron Odt [Zofran Odt] 4 mg PO Q8HR PRN #10 tab PRN Reason: Nausea Is patient prescribed a controlled substance at d/c from ED?: No Referrals: Gilmer Chappell DO [Primary Care Provider] - 1-2 days Time of Disposition: 00:31
--- NOTE | 2020-06-14 23:46 | CT ---
EXAMINATION TYPE: CT abdomen pelvis w con DATE OF EXAM: 06/14/2020 COMPARISON: None HISTORY: PAIN CT DLP: 1424.3 mGycm Automated exposure control for dose reduction was used. CONTRAST: Performed with IV Contrast, patient injected with 100 mL of Isovue 300. Images obtained from the diaphragm to the floor the pelvis with IV contrast. Lung bases are clear. There is no pleural effusion. Heart size is normal. Liver spleen stomach pancreas appear intact. Bile ducts are not dilated. There are clips from cholecy stectomy. There is no evidence of pancreatic mass. There is no adrenal mass. Kidneys show satisfactory contrast opacification. There is no hydronephrosi s. Ureters are not dilated. There is no retroperitoneal adenopathy. Bladder distends smoothly. There is no inguinal hernia. There is tiny amount of free fluid in the pelvis. Delayed images show normal r enal excretion. There is no mesenteric edema. There is no ascites or free air. There is no sign of a bowel obstructio n. Appendix is inferior and appears normal. Appendix mostly filled with air. There is some mild diste ntion of proximal small bowel up to almost 3 cm. There is no transition point. The lumbar vertebra have normal alignment. There is no compression fracture. Posterior elements are i ntact. Facet joints are intact. The bony pelvis is intact. Hip joints appear normal. IMPRESSION: There is tiny amount of free fluid in the pelvis. There is mild proximal small bowel distention and c ould be mild ileus or gastroenteritis. Normal appendix.
[2020-06-15 00:41] VITALS: BP 125/64; PULSE 55; TEMP 98
== END 2020-06-15 00:41 | disposition home or self-care (01) ==
LOC: EC 21:47
DX: R10.9 Unspecified abdominal pain (principal); F17.200 Nicotine dependence, unspecified, uncomplicated; K21.9 Gastro-esophageal reflux disease without esophagitis; Z79.899 Other long term (current) drug therapy
CPT/HCPCS: 36415; 80053; 83690; 85025; 86308; 81001; 87086; 74177; 99284; 96360; Q9967

== ENCOUNTER 2020-06-18 12:58 | Emergency (ER) | payer BC ==
[2020-06-18 14:09] LABS: ALT 27 U/L (4-49); AST 30 U/L (17-59); African American GFR (CKD) >90 (>60 ml/min/1.73 sqM); Albumin 4.7 g/dL (3.5-5.0); Alkaline Phosphatase 68 U/L (38-126); Anion Gap 9 mmol/L; Blood Urea Nitrogen 24 mg/dL (9-20); Calcium 9.9 mg/dL (8.4-10.2); Carbon Dioxide 24 mmol/L (22-30); Chloride 106 mmol/L (98-107); Glucose 96 mg/dL (74-99); Lipase 45 U/L (23-300); Magnesium 1.9 mg/dL (1.6-2.3); Non-African American GFR(CKD) >90 (>60 ml/min/1.73 sqM); Potassium 3.6 mmol/L (3.5-5.1); Sodium 139 mmol/L (137-145); Total Protein 7.2 g/dL (6.3-8.2)
[2020-06-18 14:11] LABS: Basophils % (A) 0 %; Eosinophils # (A) 0.1 k/uL (0-0.7); Eosinophils % (A) 1 %; HCT 41.7 % (39.0-53.0); HGB 14.7 gm/dL (13.0-17.5); Lymphocytes # (A) 1.3 k/uL (1.0-4.8); Lymphocytes % (A) 26 %; MCH 28.3 pg (25.0-35.0); MCHC 35.1 g/dL (31.0-37.0); MCV 80.7 fL (80.0-100.0); Mean Platelet Volume 9.7; Monocytes # (A) 0.3 k/uL (0-1.0); Monocytes % (A) 6 %; Neutrophils # (A) 3.1 k/uL (1.3-7.7); Neutrophils % (A) 65 %; Platelet Count 123 k/uL (150-450); RBC 5.17 m/uL (4.30-5.90); RDW 13.4 % (11.5-15.5); WBC 4.8 k/uL (3.8-10.6)
--- NOTE | 2020-06-18 14:24 | XR ---
EXAMINATION TYPE: XR chest 2V DATE OF EXAM: 06/18/2020 COMPARISON: NONE HISTORY: Chest pain TECHNIQUE: Frontal and lateral views of the chest are obtained. FINDINGS: There is no focal air space opacity. No evidence for pneumothorax. No pleural effusion. The cardiac silhouette size is within normal limits. The osseous structures are grossly intact. IMPRESSION: 1. No acute cardiopulmonary process.
[2020-06-18 14:32] LABS: Partial Thromboplastin Time 24.8 sec (22.0-30.0); Prothrombin Time 10.9 sec (9.0-12.0)
--- NOTE | 2020-06-18 14:45 | ED ---
General Adult HPI - General Chief complaint: Chest Pain Stated complaint: Chest Pain Source: patient, RN notes reviewed Mode of arrival: ambulatory Limitations: no limitations - History of Present Illness Initial comments: 24-year-old male medical history of GERD, hiatal hernia, migraines, hypertension presents to the emergency room for a chief complaint of chest pain. Patient states he was having a bowel movement when he started to have a stabbing burning pain in his chest. States that he tried to raise his arms of his head and do other things he does feel better. This lasted for about 20 minutes. Patient states he became concerned and presented to the ER. Patient does not have any shortness of breath. No radiating pain. No diaphoresis. Patient states symptoms are much improved at this time, no longer having pain.Patient has no other complaints at this time including shortness of breath, chest pain, abdominal pain, nausea or vomiting, headache, or visual changes. - Related Data Home Medications Medication Instructions Recorded Confirmed Melatonin 3 mg PO HS 06/14/20 06/14/20 Previous Rx's Medication Instructions Recorded Ondansetron Odt [Zofran Odt] 4 mg PO Q8HR PRN #10 tab 06/15/20 Allergies Allergy/AdvReac Type Severity Reaction Status Date / Time No Known Allergies Allergy Verified 06/18/20 14:45 Review of Systems ROS Statement: Those systems with pertinent positive or pertinent negative responses have been documented in the HPI. ROS Other: All systems not noted in ROS Statement are negative. Past Medical History Past Medical History: GERD/Reflux Additional Past Medical History / Comment(s): monitoring BP- was high last visit to [facility](no Rx). Hx. of passing out 2 yrs ago., hiatal hernia, hx migraines, hx low platelets, History of Any Multi-Drug Resistant Organisms: None Reported Past Surgical History: Cholecystectomy, Ear Surgery, Hernia Repair Additional Past Surgical History / Comment(s): Loop recorder 2018, right foot surgery x 2 after injury. EGD, bone marrow biopsy, bilat ear tubes 2019 Past Anesthesia/Blood Transfusion Reactions: No Reported Reaction Type of Cardiac Device: Loop Device Placement Date:: Past Psychological History: No Psychological Hx Reported Smoking Status: Current every day smoker Past Alcohol Use History: Rare Past Drug Use History: None Reported - Past Family History Mother Family Medical History: No Reported History General Exam Limitations: no limitations General appearance: alert, in no apparent distress Head exam: Present: atraumatic, normocephalic, normal inspection Eye exam: Present: normal appearance, PERRL, EOMI. Absent: scleral icterus, conjunctival injection, periorbital swelling ENT exam: Present: normal exam, mucous membranes moist Neck exam: Present: normal inspection, full ROM. Absent: tenderness, meningismus, lymphadenopathy Respiratory exam: Present: normal lung sounds bilaterally. Absent: respiratory distress, wheezes, rales, rhonchi, stridor Cardiovascular Exam: Present: regular rate, normal rhythm, normal heart sounds. Absent: systolic murmur, diastolic murmur, rubs, gallop, clicks GI/Abdominal exam: Present: soft, normal bowel sounds. Absent: distended, t enderness, guarding, rebound, rigid Course Vital Signs 06/18/20 13:00 Pulse Rate 61 Respiratory 20 Rate Blood Pressure 137/78 O2 Sat by Pulse 100 Oximetry EKG Findings - EKG Comments: EKG Findings:: Sinus bradycardia, ventricular rate 57, IN interval 130, QTC 377 Medical Decision Making - Medical Decision Making Vitals are stable. Patient is well appearing. he describes the pain as a sharp burning pain or loss of for 20 minutes and then resolved. Patient denies any radiating pain to the back arms or jaw. Denies tearing pain. Denies nausea vomiting. Patient denies diaphoresis. Patient denies any immediate family history of heart disease. CBC CMP unremarkable. Troponin is negative. Chest x-ray shows no acute cardiopulmonary process. At this time pain is atypical and patient is stable for discharge home. I again reevaluated him and he continues to have no pain. He will follow-up with his doctor. He'll return here for any worsening symptoms. - Lab Data Result diagrams: 06/18/20 13:38 06/18/20 13:38 Lab Results 06/18/20 06/18/20 06/18/20 Range/Units 13:38 13:38 13:38 WBC 4.8 (3.8-10.6) k/uL RBC 5.17 (4.30-5.90) m/uL Hgb 14.7 (13.0-17.5) gm/dL Hct 41.7 (39.0-53.0) % MCV 80.7 (80.0-100.0) fL MCH 28.3 (25.0-35.0) pg MCHC 35.1 (31.0-37.0) g/dL RDW 13.4 (11.5-15.5) % Plt Count 123 L (150-450) k/uL MPV 9.7 Neutrophils % 65 % Lymphocytes % 26 % Monocytes % 6 % Eosinophils % 1 % Basophils % 0 % Neutrophils # 3.1 (1.3-7.7) k/uL Lymphocytes # 1.3 (1.0-4.8) k/uL Monocytes # 0.3 (0-1.0) k/uL Eosinophils # 0.1 (0-0.7) k/uL Basophils # 0.0 (0-0.2) k/uL PT 10.9 (9.0-12.0) sec INR 1.0 (<1.2) APTT 24.8 (22.0-30.0) sec Sodium 139 (137-145) mmol/L Potassium 3.6 (3.5-5.1) mmol/L Chloride 106 (98-107) mmol/L Carbon Dioxide 24 (22-30) mmol/L Anion Gap 9 mmol/L BUN 24 H (9-20) mg/dL Creatinine 0.89 (0.66-1.25) mg/dL Est GFR (CKD-EPI)AfAm >90 (>60 ml/min/1.73 sqM) Est GFR (CKD-EPI)NonAf >90 (>60 ml/min/1.73 sqM) Glucose 96 (74-99) mg/dL Calcium 9.9 (8.4-10.2) mg/dL Magnesium 1.9 (1.6-2.3) mg/dL Total Bilirubin 1.0 (0.2-1.3) mg/dL AST 30 (17-59) U/L ALT 27 (4-49) U/L Alkaline Phosphatase 68 (38-126) U/L Troponin I (0.000-0.034) ng/mL Total Protein 7.2 (6.3-8.2) g/dL Albumin 4.7 (3.5-5.0) g/dL Lipase 45 (23-300) U/L // Range/Units 13:38 WBC (3.8-10.6) k/uL RBC (4.30-5.90) m/uL Hgb (13.0-17.5) gm/dL Hct (39.0-53.0) % MCV (80.0-100.0) fL MCH (25.0-35.0) pg MCHC (31.0-37.0) g/dL RDW (11.5-15.5) % Plt Count (150-450) k/uL MPV Neutrophils % % Lymphocytes % % Monocytes % % Eosinophils % % Basophils % % Neutrophils # (1.3-7.7) k/uL Lymphocytes # (1.0-4.8) k/uL Monocytes # (0-1.0) k/uL Eosinophils # (0-0.7) k/uL Basophils # (0-0.2) k/uL PT (9.0-12.0) sec INR (<1.2) APTT (22.0-30.0) sec Sodium (137-145) mmol/L Potassium (3.5-5.1) mmol/L Chloride (98-107) mmol/L Carbon Dioxide (22-30) mmol/L Anion Gap mmol/L BUN (9-20) mg/dL Creatinine (0.66-1.25) mg/dL Est GFR (CKD-EPI)AfAm (>60 ml/min/1.73 sqM) Est GFR (CKD-EPI)NonAf (>60 ml/min/1.73 sqM) Glucose (74-99) mg/dL Calcium (8.4-10.2) mg/dL Magnesium (1.6-2.3) mg/dL Total Bilirubin (0.2-1.3) mg/dL AST (17-59) U/L ALT (4-49) U/L Alkaline Phosphatase (38-126) U/L Troponin I <0.012 (0.000-0.034) ng/mL Total Protein (6.3-8.2) g/dL Albumin (3.5-5.0) g/dL Lipase (23-300) U/L Disposition Clinical Impression: Atypical chest pain Disposition: HOME SELF-CARE Condition: Good Instructions (If sedation given, give patient instructions): Chest Pain (ED) Additional Instructions: Please follow-up with your doctor in one to 2 days. If you develop any worsening symptoms return to the emergency room. Is patient prescribed a controlled substance at d/c from ED?: No Referrals: Gilmer Chappell DO [Primary Care Provider] - 1-2 days Time of Disposition: 15:01
[2020-06-18 15:32] VITALS: BP 128/77; PULSE 56; RESP 18
[2020-06-18 15:33] VITALS: TEMP 98
== END 2020-06-18 15:32 | disposition home or self-care (01) ==
LOC: EC 12:58
DX: R07.89 Other chest pain (principal); K21.9 Gastro-esophageal reflux disease without esophagitis; I10 Essential (primary) hypertension; G43.909 Migraine, unspecified, not intractable, without status migrainosus; F17.200 Nicotine dependence, unspecified, uncomplicated
CPT/HCPCS: 36415; 71046; 80053; 83690; 83735; 84484; 85025; 85610; 85730; 93005; 99285

== ENCOUNTER 2022-03-21 09:47 | Emergency (ER) | payer BC, OTHER ==
[2022-03-21 09:52] VITALS: RESP 18
[2022-03-21] MEDS ORDERED: LIDOCAINE 1% INJ 10MG/ML (30 ML VIAL-PF) SQ ONE (09:59)
--- NOTE | 2022-03-21 10:03 | ED ---
Wound/Laceration HPI - General Chief Complaint: Wound/Laceration Stated Complaint: [facility]-hand lac Time Seen by Provider: 03/21/22 09:53 Source: patient, RN notes reviewed, old records reviewed Mode of arrival: ambulatory Limitations: no limitations - History of Present Illness Initial Comments: Well-appearing 26 year old male presents ambulatory with complaints of lacerations to his right 4th and 5th fingers from a chainsaw about an hour prior to arrival. Patient states that he was wearing gloves and the chainsaw kicked back and cut his fingers. He does have good range of motion and sensation. He did soak the wounds in soapy water for 20 minutes and bandage them prior to arrival. Tetanus shot is up-to-date. -: hour(s) (1) Extremity Location: Right: Hand (Ring and little fingers) Place: outdoors Patient Tetanus UTD: Yes Context: accidental, power tool use (Chainsaw) Associated Symptoms: none Treatments Prior to Arrival: bandage (Soaked in soapy water for 20 minutes) - Related Data Home Medications Medication Instructions Recorded Confirmed Melatonin 3 mg PO HS 06/14/20 06/18/20 Previous Rx's Medication Instructions Recorded Ondansetron Odt [Zofran Odt] 4 mg PO Q8HR PRN #10 tab 06/15/20 Allergies Allergy/AdvReac Type Severity Reaction Status Date / Time No Known Allergies Allergy Verified 03/21/22 09:52 Review of Systems ROS Statement: Those systems with pertinent positive or pertinent negative responses have been documented in the HPI. ROS Other: All systems not noted in ROS Statement are negative. Past Medical History Past Medical History: GERD/Reflux Additional Past Medical History / Comment(s): monitoring BP- was high last visit to [facility](no Rx). Hx. of passing out 2 yrs ago., hiatal hernia, hx maddy becka, hx low platelets, History of Any Multi-Drug Resistant Organisms: None Reported Past Surgical History: Cholecystectomy, Ear Surgery, Hernia Repair Additional Past Surgical History / Comment(s): Loop recorder 2018, right foot surgery x 2 after injury. EGD, bone marrow biopsy, bilat ear tubes 2019 Past Anesthesia/Blood Transfusion Reactions: No Reported Reaction Type of Cardiac Device: Loop Device Placement Date:: Past Psychological History: No Psychological Hx Reported Smoking Status: Current every day smoker Past Alcohol Use History: Rare Past Drug Use History: None Reported - Past Family History Mother Family Medical History: No Reported History General Exam Limitations: no limitations Course Vital Signs 03/21/22 03/21/22 09:49 11:03 Temperature 98 F 98.2 F Pulse Rate 70 61 Respiratory 18 18 Rate Blood Pressure 148/104 113/67 O2 Sat by Pulse 98 98 Oximetry Procedures - Laceration Laceration #1 Consent Obtained: verbal consent Indication: laceration Site: hand Size (cm): 2 (ring finger) Description: linear Anesthetic Used: lidocaine 1% Anesthesia Technique: local infiltration Pre-repair: irrigated extensively Type of Sutures: nylon Size of Sutures: 5-0 Number of Sutures: 3 Technique: simple, interrupted Patient Tolerated Procedure: well, no complications Laceration #2 Consent Obtained: verbal consent Indication: laceration Site: hand (little finger) Size (cm): 1 Description: linear Depth: simple, single layer Anesthetic Used: lidocaine 1% Pre-repair: irrigated extensively Type of Sutures: nylon Size of Sutures: 5-0 Number of Sutures: 1 Technique: simple, interrupted Patient Tolerated Procedure: well, no complications Medical Decision Making - Medical Decision Making Patient has good range of motion with flexion and extension. Good sensation. Wounds were irrigated again with saline. He was offered pain medication and declined. Tetanus shot is up-to-date. X-ray performed to rule out fracture and foreign body Wounds were closed with sutures and dressings applied. Instructed to follow up with primary care doctor for suture removal in 7-10 days return if any new or concerning symptoms. Patient agreeable to this plan of care. Case discussed with Dr. Horn. Was pt. sent in by a medical professional or institution? @ -No Did you speak to anyone other than the patient for history? @ -No Did you review nursing and triage notes? @ -Agrees Were old charts reviewed? @ -No Differential Diagnosis? @ -Laceration, fracture, foreign body EKG interpreted by me (3pts min.)? @ -Not applicable X-rays interpreted by me (1pt min.)? @ -X-ray interpreted by me shows no evidence of fracture or foreign body CT interpreted by me (1pt min.)? @ -Not applicable U/S interpreted by me (1pt. min.)? @ -Not applicable What testing was considered but not performed? (CT, X-rays, U/S, labs)? Why? @ No What meds were considered but not given? Why? @ -I did consider tetanus, patient states that his shots are up-to-date; I did consider antibiotics however wound appears clean and very superficial. Directed to use bacitracin or Neosporin. Did you discuss the management of the patient with other professionals? @ -None Did you reconcile home meds? @ -No Was smoking cessation discussed for >3mins.? @ -No Was critical care preformed (if so, how long)? @ -No Were there social determinants of health that impacted care today? How? (Homelessness, low income, unemployed, alcoholism, drug addiction, transportation, low edu. Level, literacy, decrease access to med. care, alf, rehab)? @ -None Was there de-escalation of care discussed even if they declined? (Discuss DNR or withdrawal of care, Hospice)? @ -No What co-morbidities impacted this encounter? (DM, HTN, Smoking, COPD, CAD, Cancer, CVA, Hep., AIDS, mental health diagnosis, sleep apnea, morbid obesity)? @ -None Was patient admitted / discharged? @ -Discharged Undiagnosed new problem with uncertain prognosis? @ -[none] Drug Therapy requiring intensive monitoring for toxicity (Heparin, Nitro, Insulin, Cardizem)? @ -[none] Were any procedures done? @ -Laceration repair Diagnosis/symptom? @ -Finger lacerations Acute, or Chronic, or Acute on Chronic? @ -Acute Uncomplicated (without systemic symptoms) or Complicated (systemic symptoms)? @ -Uncomplicated Side effects of treatment? @ -[none] Exacerbation, Progression, or Severe Exacerbation] @ -[no] Poses a threat to life or bodily function? @ -[no] Disposition Clinical Impression: Laceration Disposition: HOME SELF-CARE Condition: Good Instructions (If sedation given, give patient instructions): Care For Your Stitches (ED), Laceration (ED) Additional Instructions: Keep wounds clean and dry. Change the dressing tomorrow and place a thin layer of Neosporin over wounds and cover with Band-Aid. Watch for signs of infection. Return to emergency with a normal concerning symptoms. Sutures to be removed in 7-10 days. Is patient prescribed a controlled substance at d/c from ED?: No Referrals: None,Stated [Primary Care Provider] - 1-2 days Time of Disposition: 10:51
--- NOTE | 2022-03-21 10:16 | XR ---
EXAMINATION TYPE: XR hand limited RT DATE OF EXAM: 03/21/2022 COMPARISON: None HISTORY: Lacerations fourth and fifth digit from chainsaw TECHNIQUE: 2 view right hand FINDINGS: Joint spaces are preserved no acute fracture or dislocation is evident. No radiopaque forei gn bodies are evident. Follow up exams can be performed 7-10 days from acute trauma for continued pain. IMPRESSION: 1. No acute osseous abnormality. 2. No radiopaque foreign bodies.
[2022-03-21 11:07] VITALS: BP 113/67; PULSE 61; TEMP 98.2
== END 2022-03-21 11:06 | disposition home or self-care (01) ==
LOC: EC 09:47
DX: S61.214A Laceration without foreign body of right ring finger without damage to nail, initial encounter (principal); S61.216A Laceration without foreign body of right little finger without damage to nail, initial encounter; F17.200 Nicotine dependence, unspecified, uncomplicated; W29.3XXA Contact with powered garden and outdoor hand tools and machinery, initial encounter
CPT/HCPCS: 73120; 99283; 12002; J2001